=== PATIENT | female | born 1975 | race African-American/Black ===

== ENCOUNTER 2019-08-22 15:30 | Outpatient (AMBR) | payer MEDICAID, SELFPAY ==
--- NOTE | 2019-08-15 16:00 | PT.OIERPT ---
PT OP Initial Eval Patient Information Visit Reasons: neck pain Medical Diagnosis: M48.02 Treatment Dx #1: Neck Pain Treatment Dx #2: BUE Weakness Start of Care: 08/15/19 Initial Assessment Subjective Pt is a 44 y/o female c/o chronic neck pain started 1 year ago. Pt notice numbness and tingling down the arms. 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 Pt currently has limitation with cooking, chores, cleaning, lifting, self care, sleeping, headache, and turning her head. Objective C/S AROM: all motions are WNL with end range pain in all plane Scapula MMTs: grossly 3-/5 BUE AROM: all motions are WNL BUE MMTs: grossly 3+/5 Inspector And Unloader Strength: L- 85 lbs R- 80 lbs Palpation: TTP and hypomobile C3-C6 facets bilaterally; TTP subocciptials R>L Assessment Pt demonstrate neck pain with BUE weakness leading to decline function. Pt will benefit from physical therapy to increase strength, mobility, and work on stability. Short Term and Improvement Auditor Goals 1) Increase c/s AROM WNL with less pain in 6 wks to be able to perform chores 2) Increase BUE MMTs grossly to 4-/5 in 6 wks to be able to perform lifting activities 3) Increase Bilateral scapula MMTs to 3+/5 in 6 wks to be able to perform recreational activities 4) Indep with HEP Treatment Plan 1) Manual Therapy 2) Therapeutic Activities 3) Therapeutic Exercises 4) Modalities (ice, heat, estim) Frequency and Duration 2 x wk for 6 wks Certification Dates: 08/15/19 to 11/15/19 Office Procedures PT Procedures PT Date of Service: 08/15/19 OP PT Eval Mod Complex 30 minutes: Yes
--- NOTE | 2019-08-19 15:49 | PT.ODAYNRPT ---
PT Outpatient Daily Note Date of Service: August 19, 2019 OP Daily Note Visit Reasons: neck pain Outpatient Physical Therapy Treatment Date: 08/19/19 Subjective: pt has neck pain upon visit. pt pleasant and eager for PT. Objective: see flow sheet. Assessment: pt felt a little lightheaded after c/s traction but felt better a few mins in sitting. palpated neck, STM and pt has blanca in her neck. she made sounds indicating discomfort from the STM. good chin tucks performed but she tends to be on her phone which can distract her from the exercise. Plan: continue POC per PT. Length of Time (minutes) of Treatment: 30 Minutes Office Procedures PT Procedures PT Date of Service: 08/15/19 OP PT Eval Mod Complex 30 minutes: Yes PT Procedures PT Date of Service: 08/19/19 Traction Mechanical: Yes Therapeutic Exercise 15 minutes: Yes
--- NOTE | 2019-08-22 16:06 | PT.ODAYNRPT ---
PT Outpatient Daily Note Date of Service: August 22, 2019 OP Daily Note Visit Reasons: neck pain Outpatient Physical Therapy Treatment Date: 08/22/19 Subjective: Pt still has neck pain and UE symptoms. Pt mention that her neck is a little stiff. Objective: Please see flow chart for list of ther ex perfromed Assessment: unable to tolerate much traction force; decrease PSI to 6lbs. Pt had difficulty with y's and t's due to muscle fatigue and pain in the shoulder Plan: Continue with PT Length of Time (minutes) of Treatment: 30 Minutes Office Procedures PT Procedures PT Date of Service: 08/22/19 Traction Mechanical: Yes Therapeutic Exercise 15 minutes: Yes PT Procedures PT Date of Service: 08/15/19 OP PT Eval Mod Complex 30 minutes: Yes PT Procedures PT Date of Service: 08/19/19 Traction Mechanical: Yes Therapeutic Exercise 15 minutes: Yes
== END 2019-08-29 23:59 | disposition home or self-care (01) ==
PROVIDERS: PCP Family Medicine; Referring Provider Family Medicine; Visit Provider Registered Nurse
DX: M48.02 Spinal stenosis, cervical region (principal); M51.26 Other intervertebral disc displacement, lumbar region; M54.2 Cervicalgia; R53.1 Weakness; G89.29 Other chronic pain
CPT/HCPCS: 97012; 97110; 97162

== ENCOUNTER 2025-07-11 21:16 | Emergency (ER) | payer MEDICAID, SELFPAY ==
[2025-07-11 21:17] VITALS: BMI 33.0
[2025-07-11 21:38] VITALS: BP 120/86; PULSE 93; RESP 20; TEMP 37.1; O2SAT 99
--- NOTE | 2025-07-11 22:05 | PD.EDBACK ---
ED Back Injury Pain RME/HPI General Chief Complaint: Back Pain/Injury Stated Complaint: CHRONIC BACK PAIN Time Seen by Provider: 07/11/25 21:54 Arrival date/time: 07/11/25 21:16 RME / HPI RME / HPI Narrative: 50-year-old female patient with history of chronic neck and back pain, came in for evaluation regarding worsening chronic back pain.'s been ongoing for several weeks, was seen by PCP, and was given gabapentin Lyrica, which according to the patient is not really working. Patient pain is described as dull ache, severity moderate. Patient also complained that from time to time she had weakness to bilateral lower extremities. Patient is ambulatory. Patient is denying any saddle anesthesia denies any urinary incontinence denies any bladder incontinence. Patient is asking if we can do MRI of his spine.. Related Data Home Medications ?Medication ?Instructions ?Recorded ?Confirmed fluoxetine 40 mg capsule 40 mg PO QDAY 07/16/18 07/28/22 pregabalin 50 mg capsule (Lyrica) 50 mg PO DAILY 02/10/22 07/28/22 Previous Rx's ?Medication ?Instructions ?Recorded albuterol sulfate 90 mcg/actuation 2 puff inhalation Q6HR PRN 08/28/16 aerosol inhaler (ProAir HFA) SHORTNESS OF BREATH #1 inh cephalexin 500 mg capsule 500 mg PO QID #28 caps 09/03/22 acetaminophen 300 mg-codeine 30 mg 1 tab PO Q8H PRN pain #20 tabs 07/11/25 tablet dexamethasone 6 mg tablet 6 mg PO QDAY #10 tabs 07/11/25 methocarbamol 500 mg tablet 500 mg PO Q8H PRN pain #30 tabs 07/11/25 Allergies Allergy/AdvReac Type Severity Reaction Status Date / Time No Known Allergies Allergy Verified 07/29/22 12:00 Review of Systems Review of Systems Narrative Review of Systems: Review of system reviewed and within normal limits except mentioned in HPI ED Exam Narrative Physical exam: VITAL SIGNS: Reviewed. GENERAL APPEARANCE: Alert and interactive, follows commands, no acute distress, HEAD AND FACE: Non-traumatic. ENT: PERRL, pink conjunctivitis, eyelid no trauma, Mucous membrane moist. NECK: Supple, nontender, no nuchal rigidity. ABDOMEN: Soft, positive bowel sounds, nondistended, no guarding, nontender, no rebound, no masses, RECTAL: Deferred. GENITAL: Deferred. NEUROLOGICAL: Gross motor function intact sensory function intact, Appropriate for age. MUSCULOSKELETAL: low back tenderness, more on the right side. Limited range of motion. EXTREMITIES: Nontender, full range of motion. SKIN: Color pink, dry, no rash, no lacerations, no abrasions, no contusions. LYMPHATICS: Deferred. Course Quality Measures none Orders Category Date Time Status CYCLObenzaPRINE [Flexeril] Med 07/11/25 22:03 Once 10 mg PO X1 ONE Dexamethasone Inj [Decadron Inj] Med 07/11/25 22:03 Once 10 mg PO X1 ONE Ketorolac Inj [Toradol Inj] Med 07/11/25 22:03 Once 30 mg IM X1 ONE Vital Signs Vital signs: Vital Signs Temperature 98.7 F 07/11/25 21:38 Pulse Rate 93 07/11/25 21:38 Respiratory Rate 20 07/11/25 21:38 Blood Pressure 120/86 H 07/11/25 21:38 Pulse Oximetry (%) 99 07/11/25 21:38 Oxygen Delivery Method Room Air 07/11/25 21:38 Back Pain / Injury MDM Narrative MDM Narrative:: 50-year-old female patient with history of chronic neck and back pain, came in for evaluation regarding worsening chronic back pain.'s been ongoing for several weeks, was seen by PCP, and was given gabapentin Lyrica, which according to the patient is not really working. Patient pain is described as dull ache, severity moderate. Patient also complained that from time to time she had weakness to bilateral lower extremities. Patient is ambulatory. Patient is denying any saddle anesthesia denies any urinary incontinence denies any bladder incontinence. Patient is asking if we can do MRI of his spine.. Patient patient will be sent home on medications for pain. Emergency imaging is not needed at this time. Patient is not showing any cauda equina syndrome. I advised the patient to closely follow-up with PCP and asked for outpatient MRI of the spine. Patient data External records reviewed:: None Clinical information provided by:: patient Social determinants that could affect healthcare access:: none Patient has the following chronic illnesses:: Chronic back pain How is presenting disease/condition affected by chronic disease/condition?: exacerbated by Evaluation data The following diagnostics were reviewed and interpreted by me:: other (specify) (None) Lab and/or radiology exams considered but not ordered:: None Interpretation Summary: None Medications / Prescriptions Medications or Prescriptions considered but not ordered:: None Medication administrations:: Toradol, Flexeril, and [place]. Decadron Consultations Consultation(s) initiated? (list below): No Diagnosis Differential diagnosis back pain/injury: lumbar radiculopathy and other (Chronic back pain, acute on chronic back pain) Most likely diagnosis given after review of the tests above:: Acute on chronic back pain Admission Indicated Admission indicated?: not indicated Admission Request Was there a request for admission?: No Disposition Plan Disposition Plan: Discharge Discharge Attestation Discharge Attestation: The patient was given an opportunity to ask questions and understood the discharge instructions. Discharge instructions specifically effects, indications for sooner follow up or return to the emergency department, and the expected course of current diagnosis. Patient condition: Stable Discharge Plan Plan Patient Disposition: HOME (Self Care) Discharge Disposition comment: Stable Prescriptions/Referrals Prescriptions/Med Rec: New methocarbamol 500 mg tablet 500 mg PO Q8H PRN (Reason: pain) Qty: 30 0RF dexamethasone 6 mg tablet 6 mg PO QDAY Qty: 10 0RF acetaminophen-codeine 300-30 mg tablet 1 tab PO Q8H PRN (Reason: pain) Qty: 20 0RF No Action albuterol sulfate [ProAir HFA] 8.5 GM HFA aerosol inhaler 2 puff Inhalation Q6HR PRN (Reason: SHORTNESS OF BREATH) Qty: 1 0RF fluoxetine 40 mg Capsule 40 mg PO QDAY pregabalin [Lyrica] 50 mg Capsule 50 mg PO DAILY cephalexin 500 mg capsule 500 mg PO QID Qty: 28 0RF Problem List Clinical Impression: Acute on chronic low back pain Patient/Caregiver Discharge Instructions Discharge Activity: activity as tolerated Education Materials: Understanding the Pain Response Additional Instructions: Thank you for the opportunity for serving you today. You are stable for discharged . You are advised to: Follow-up with your PCP in 1 to 2 days and ask your PCP to do outpatient MRI of your lumbar spine. You can also ask your PCP to refer you to a spine surgeon Return to ED for worsening of symptoms Increase oral fluids Take medication as prescribed Print Language: German Stand Alone Forms: [place] Award Info., Patient Portal Info Letter PA/LEG ASSEMBLER Supervising Physician PA/LEG ASSEMBLER Supervising Physician: MD Ho
[2025-07-11] MEDS: DEXAMETHASONE SOD PHOS INJ 10 MG/ML VIAL PO (22:58)
[2025-07-11] MEDS: KETOROLAC INJ 30 MG/ML VIAL IM (23:00)
== END 2025-07-11 23:20 | disposition home or self-care (01) ==
LOC: SERX 23:05
PROVIDERS: Emergency Provider Emergency Medicine
DX: M54.50 Low back pain, unspecified (principal); G89.29 Other chronic pain
CPT/HCPCS: 99283; J1100; J1885; A9270

== ENCOUNTER 2025-07-25 11:57 | Emergency (ER) | payer MEDICAID, SELFPAY ==
[2025-07-25 12:09] VITALS: BMI 33.1
[2025-07-25 12:12] VITALS: BP 120/83; PULSE 65; RESP 18; TEMP 36.9; O2SAT 97
--- NOTE | 2025-07-25 12:16 | XR_ITS ---
Examination: Lumbar spine 3 views TECHNIQUE: AP lateral coned lateral lower lumbar spine 3 views Date and time: July 25, 2025, 12:18 PM INDICATIONS: Sudden onset lower back pain today. FINDINGS: Comparison 07/25/2024 Adequate alignment lumbar vertebral bodies on the lateral view Advanced degenerative disc disease of the lower 3 lumbar levels No lumbar fracture Moderate lumbar spondylosis IMPRESSION: Advanced degenerative disc disease lower 3 lumbar levels
[2025-07-25] MEDS: KETOROLAC INJ 60 MG/2 ML VIAL 30 MG IM (13:21)
--- NOTE | 2025-07-25 17:30 | EDNOTE_ITS ---
ED Back Injury Pain RME/HPI General Chief Complaint: Back Pain/Injury Stated Complaint: Lower back pain on right side Time Seen by Provider: 07/25/25 12:11 Source: patient Arrival date/time: 07/25/25 11:57 50-year-old female with a history of asthma presents to the emergency room with a chief complaint of lumbar back pain that radiates down her right leg x 2 days Mode of arrival: ambulatory Limitations: no limitations Related Data Home Medications ?Medication ?Instructions ?Recorded ?Confirmed fluoxetine 40 mg capsule 40 mg PO QDAY 07/16/1807/28 pregabalin 50 mg capsule (Lyrica) 50 mg PO DAILY 02/1007/28/22 Previous Rx's ?Medication ?Instructions ?Recorded albuterol sulfate 90 mcg/actuation 2 puff inhalation Q 6HR PRN 08/28/16 aerosol inhaler (ProAir HFA) SHORTNESS OF BREATH #1 in h cephalexin 500 mg capsule 500 mg PO QID #28 caps 09/03 acetaminophen 300 mg-codeine 30 mg 1 tab PO Q8H PRN pa in #20 tabs 07/11/25 tablet dexamethasone 6 mg tablet 6 mg PO QDAY #10 tabs methocarbamol 500 mg tablet 500 mg PO Q8H PRN pain #30 tabs 07/11/25 Allergies Allergy/AdvReac Type Severity Reaction Status Date / Time No Known Allergies Allergy Verified 07/25/25 12:02 Review of Systems Review of Systems Systems Reviewed: All systems reviewed, normal except as documented Constitutional Constitutional: Reports system reviewed and no additional complaints, except as documented, Denies fatigue, Denies fever(s), Denies headache(s) and Denies weakness Eyes Eyes: Reports system reviewed and no additional complaints, except as documented, Denies blurry vision and Denies change in vision ENT Ears, Nose, Mouth, and Throat: Reports system reviewed and no additional complaints, except as documented, Denies otalgia, Denies headache(s), Denies nasal congestion, Denies throat swelling and Denies vertigo Cardiovascular Cardiovascular: Reports system reviewed and no additional complaints, except as documented, Denies chest pain, Denies dyspnea and Denies dyspnea on exertion Respiratory Respiratory: Reports system reviewed and no additional complaints, except as documented, Denies chest congestion, Denies cough, Denies dyspnea, Denies dyspnea on exertion and Denies wheezing Gastrointestinal Gastrointestinal: Reports system reviewed and no additional complaints, except as documented, Denies abdominal pain, Denies cramping, Denies nausea and Denies vomiting Genitourinary Genitourinary: Reports system reviewed and no additional complaints, except as documented Musculoskeletal Musculoskeletal: Reports system reviewed and no additional complaints, except as documented and Reports back pain Integumentary/Breasts Skin/Breast: Reports system reviewed and no additional complaints, except as documented and Denies wounds Neurologic Neurologic: Reports system reviewed and no additional complaints, except as documented, Denies confusion, Denies headache(s), Denies lack of coordination, Denies vertigo and Denies weakness Psychiatric Psychiatric: Reports system reviewed and no additional complaints, except as documented, Denies anxiety, Denies confusion, Denies depression, Denies paranoia, Denies suicidal ideation and Denies tactile hallucinations Endocrine Endocrine: Reports system reviewed and no additional complaints, except as documented and Denies fatigue Hematologic/Lymphatic Hematologic/Lymphatic: Reports system reviewed and no additional complaints, except as documented and Denies lymphadenopathy Allergic/Immunologic Allergic/Immunologic: Reports system reviewed and no additional complaints, except as documented, Denies throat swelling, Denies urticaria and Denies wheezing Past Medical History Past Medical History NEUROLOGIC: Positive Peripheral Neuropathy; Negative Seizures CARDIAC: Positive Hypercholesterolemia and Hypertension; Negative Cardiac Disorders or Congestive Heart Failure RESPIRATORY: Positive Asthma, Bronchitis, Pneumonia and Sleep Apnea; Negative Chronic Obstructive Pulmonary Disease (COPD) GASTROINTESTINAL: Negative Gastrointestinal Disorders GENITOURINARY: Negative Genitourinary Disorders or Renal Disease REPRODUCTIVE: Positive Previous Pregnancies (x1 csection, x2 ab surgical) MUSCULOSKELETAL: Positive Musculoskeletal Disorders, Degenerative Disk Disease, Carpal Tunnel Syndrome (x2) and Fibromyalgia ENDOCRINE: Negative Endocrine Disorders, Diabetes Mellitus Type 1 or Diabetes Mellitus Type 2 HEMATOLOGIC: Negative Blood Disorders or Sickle Cell Disease PSYCHO/SOCIAL: Positive Recreational Drug Use ([facility]), Depression and Anxiety; Negative Schizophrenia, Bipolar Disorder, Behavior Problems, Self-Mutilation, Attention Deficit Disorder, Depression, Post Traumatic Stress Disorder or Eating Disorder OTHER HISTORY: Negative Blood Transfusions, Blood Transfusion Reaction, Anesthesia Reactions, Chemotherapy or Cancer Family History FAMILY HISTORY: Positive Family Respiratory Disorders (dad asthma); Negative Family Cancer Surgical History SURGICAL: Positive Joint Replacement and Section; Negative Ear Surgery, Abdominal Surgery or Nephrectomy Social History SMOKING STATUS: Current every day smoker SUBSTANCE USE: marijuana ED Exam General Limitations: Present no limitations General appearance: Present alert and in no apparent distress Head Head exam: Present atraumatic Eye Eye exam: Present normal appearance, PERRL and EOMI ENT ENT exam: Present normal exam, normal oropharynx and mucous membranes moist Neck Neck exam: Present normal inspection, full ROM and trachea midline Chest Chest inspection: Present normal inspection and symmetric chest wall rise Respiratory Respiratory exam: Present normal lung sounds bilaterally Cardiovascular Cardiovascular exam: Present regular rate, normal rhythm and normal heart sounds Abdominal Exam Abdominal exam: Present soft and normal bowel sounds Extremities Exam Extremities exam: Present normal inspection and full ROM Back Exam Back exam: Present normal inspection, full ROM, tenderness, vertebral tenderness and sciatic notch tenderness (R) Back 1 view image: 2 1. Tenderness and pain with palpation Neurological Exam Neurological exam: Present alert, oriented X3 and CN II-XII intact Psychiatric Psychiatric exam: Present normal affect and normal mood Skin Skin exam: Present warm, dry, intact and normal color Course Quality Measures none Orders Category Date Time Status XR lumbar spine 2-3V Stat Exams 07/25/25 12:16 Completed Ketorolac Inj [Toradol Inj] Med 07/25/25 12:16 Discontinued 30 mg IM X1 ONE Vital Signs Vital signs: Vital Signs Temperature 98.4 F 07/25/25 12:12 Pulse Rate 65 07/25/25 12:12 Respiratory Rate 18 07/25/25 12:12 Blood Pressure 120/83 07/25/25 12:12 Pulse Oximetry (%) 97 07/25/25 12:12 Oxygen Delivery Method Room Air 07/25/25 12:12 Back Pain / Injury MDM Narrative MDM Narrative:: 50-year-old female with a history of asthma presents to the emergency room with a chief complaint of lumbar back pain that radiates down her right leg x 2 days Patient is hemodynamically stable and in no apparent distress. Physical examination shows lower lumbar back pain with palpation. The patient also has some right sciatic notch tenderness and states that the pain will be shooting down her right leg intermittently with certain movements. X-ray of the lumbar spine was negative for any acute findings. Findings are consistent with sciatica Patient was discharged and educated to follow-up with primary care provider in the next 24 to 48 hours and return to the emergency room for any evidence of worsening signs or symptoms Patient data External records reviewed:: [facility] previous records Clinical information provided by:: patient Social determinants that could affect healthcare access:: none Patient has the following chronic illnesses:: No chronic illness How is presenting disease/condition affected by chronic disease/condition?: no chronic disease Evaluation data The following diagnostics were reviewed and interpreted by me:: lab results and radiology exam(s) Lab and/or radiology exams considered but not ordered:: Labs and radiology exams considered and ordered Interpretation Summary: Lumbar [id number]: Comparison 07/25/2024 Adequate alignment lumbar vertebral bodies on the lateral view Advanced degenerative disc disease of the lower 3 lumbar levels No lumbar fracture Moderate lumbar spondylosis IMPRESSION: Advanced degenerative disc disease lower 3 lumbar levels Medications / Prescriptions Medications or Prescriptions considered but not ordered:: Medication given Medication administrations:: Medication Administration History Discontinued Medications Ketorolac Tromethamine (Ketorolac Inj 60 Mg/2 Ml Vial) 30 mg IM X1 ONE Stop: 07/25/25 12:17 Last Admin: 07/25/25 13:21 Dose: 30 mg Documented By: Medication given Consultations Consultation(s) initiated? (list below): No Diagnosis Differential diagnosis back pain/injury: lumbar radiculopathy, sciatica, strain of lumbar region and thoracic back pain Most likely diagnosis given after review of the tests above:: Sciatica Admission Indicated Admission indicated?: not indicated Admission Request Was there a request for admission?: No Disposition Plan Disposition Plan: Discharge Discharge Attestation Discharge Attestation: The patient and all family members were given an opportunity to ask questions and understood the discharge instructions. Discharge instructions specifically effects, indications for sooner follow up or return to the emergency department, and the expected course of current diagnosis. Patient condition: Stable Discharge Plan Plan Patient Disposition: HOME (Self Care) Discharge Disposition comment: Stable Prescriptions/Referrals Prescriptions/Med Rec: No Action albuterol sulfate [ProAir HFA] 8.5 GM HFA aerosol inhaler 2 puff Inhalation Q6HR PRN (Reason: SHORTNESS OF BREATH) Qty: 1 0RF fluoxetine 40 mg Capsule 40 mg PO QDAY pregabalin [Lyrica] 50 mg Capsule 50 mg PO DAILY cephalexin 500 mg capsule 500 mg PO QID Qty: 28 0RF methocarbamol 500 mg tablet 500 mg PO Q8H PRN (Reason: pain) Qty: 30 0RF dexamethasone 6 mg tablet 6 mg PO QDAY Qty: 10 0RF acetaminophen-codeine 300-30 mg tablet 1 tab PO Q8H PRN (Reason: pain) Qty: 20 0RF Problem List Clinical Impression: Sciatica Patient/Caregiver Discharge Instructions Education Materials: ED Sciatica Additional Instructions: Please follow-up with your primary care provider in the next 24 to 48 hours X-ray of your lumbar spine was negative for any acute findings For any evidence of worsening signs or symptoms return to emergency room immediately Print Language: Citizen Of [place] Stand Alone Forms: [place] Award Info., Patient Portal Info Letter PA/FOREST LANDSCAPE ECOLOGY PROFESSOR Supervising Physician PA/FOREST LANDSCAPE ECOLOGY PROFESSOR Supervising Physician: Dr. Jamison
== END 2025-07-25 13:15 | disposition home or self-care (01) ==
LOC: SERX 13:10
PROVIDERS: Emergency Provider Nurse Practitioner Family; PCP Nurse Practitioner Family
DX: M51.16 Intervertebral disc disorders with radiculopathy, lumbar region (principal)
CPT/HCPCS: 72100; 99283; J1885

== ENCOUNTER 2025-10-06 12:22 | Inpatient (IN) | payer MEDICAID, SELFPAY ==
--- NOTE | 2025-10-06 | XR_ITS ---
Examinations: MRI Brain without intravenous contrast. MRI brain with intravenous contrast MRA brain with intravenous contrast. MRA brain without intravenous contrast MRA neck with intravenous contrast Date and time of exam: Decerebrate, 2024, 1623 hours INDICATIONS: Left-sided headaches and body numbness beginning 2 days ago Technique: Multiple axial and sagittal images of the brain have been obtained Siemens high-resolution 1.5 Lyn short bore scanner is utilized. Sagittal sections, T1-weighted, TR 500, TE 14 Axial sections proton density and T2-weighted, TR 3,000, TE 34, TR 3,000, TE 91 Inversion recovery axial images, TR 9,260, TE 111, TI 2,500 Diffusion weighted images, axial sections, TR 4,800, TE 128, B value 1,000 Axial sections, ADC map, TR 4,800, TE 128. Contrast images have been obtained post intravenous 20 cc Gadolinium. T1-weighted axial and coronal images post contrast have been obtained. Angiographic images of neck and brain are obtained pre and post contrast. 3-D post processing performed, including brain, extracranial neck arterial maximum intensity projections Findings: Sellaturcica is not enlarged. The optic chiasm and infundibular stalk are not remarkable. Prepontine and interpeduncular cisterns are not enlarged. No localized enlargement of the medulla or bayron. Fourth ventricle and cerebellar tonsils normal in position. Subacute hemorrhage is not seen. Fourth ventricle is midline. Mass in the cerebellopontine angle region is not evident. 7th and 8th nerve complexes exhibits symmetry. Globes are symmetrical with no retro-orbital mass. Increased white matter signal evident, punctate focus increased signal left frontal white matter FLAIR image 13 and increased signal right brainstem pontine level Diffusion-weighted images demonstrate large focus, 15 mm restricted diffusion right brainstem pontine level. Mass-effect upon the ventricular system is not identified. Abnormal contrast enhancement is not seen. 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
[2025-10-06 12:35] VITALS: BP 144/98; PULSE 56; RESP 18; TEMP 36.9; O2SAT 100; BMI 32.3
--- NOTE | 2025-10-06 12:59 | EDNOTE_ITS ---
Neuro Symptoms Deficit-RME/HPI General Chief Complaint: General Adult/Misc Complain Stated Complaint: HEADACHE, NUMBNESS L) SIDE X 2 DAYS; ANKLE PAIN Time Seen by Provider: 10/06/25 13:05 Arrival date/time: 10/06/25 12:22 RME / HPI RME / HPI Narrative: See [facility] for Dr. Parkinson's HPI Documentation. Related Data Home Medications ?Medication ?Instructions ?Recorded ?Confirmed fluoxetine 40 mg capsule 40 mg PO QDAY 07/16/1807/28 pregabalin 50 mg capsule (Lyrica) 50 mg PO DAILY 02/1007/28/22 Previous Rx's ?Medication ?Instructions ?Recorded albuterol sulfate 90 mcg/actuation 2 puff inhalation Q 6HR PRN 08/28/16 aerosol inhaler (ProAir HFA) SHORTNESS OF BREATH #1 in h cephalexin 500 mg capsule 500 mg PO QID #28 caps 09/03 acetaminophen 300 mg-codeine 30 mg 1 tab PO Q8H PRN pa in #20 tabs 07/11/25 tablet dexamethasone 6 mg tablet 6 mg PO QDAY #10 tabs methocarbamol 500 mg tablet 500 mg PO Q8H PRN pain #30 tabs 07/11/25 Allergies Allergy/AdvReac Type Severity Reaction Status Date / Time No Known Allergies Allergy Verified 10/06/25 12:26 Review of Systems Review of Systems Systems Reviewed: All systems reviewed, normal except as documented Past Medical History Past Medical History NEUROLOGIC: Positive Peripheral Neuropathy CARDIAC: Positive Hypercholesterolemia and Hypertension RESPIRATORY: Positive Asthma, Bronchitis, Pneumonia and Sleep Apnea REPRODUCTIVE: Positive Previous Pregnancies (x1 csection, x2 ab surgical) MUSCULOSKELETAL: Positive Musculoskeletal Disorders, Degenerative Disk Disease, Carpal Tunnel Syndrome (x2) and Fibromyalgia PSYCHO/SOCIAL: Positive Recreational Drug Use (medical marajuana), Depression and Anxiety Family History FAMILY HISTORY: Positive Family Respiratory Disorders (dad asthma) Surgical History SURGICAL: Positive Joint Replacement and Section Social History SMOKING STATUS: Current every day smoker SUBSTANCE USE: marijuana ED Exam Narrative Physical exam: See [facility] for Dr. Parkinson's Physical Exam Documentation. Course Quality Measures none Orders Category Date Time Status Admit to Inpatient Status Routine Admission 10/06/25 20:13 Active Patient Condition Routine Admission 10/06/25 20:13 Ordered Aspiration precautions ONCE Care 10/06/25 20:18 Active COVID-19 Screening Questionnaire NOW Care 10/06/25 20:05 Active Decision to Admit X1 Care 10/06/25 20:05 Completed EKG (ED ONLY) *Do not use* NOW Care 10/06/25 13:04 Completed Neuro Check Q4H Care 10/06/25 20:12 Active Notify provider NEEDED Care 10/06/25 20:13 Active Saline [Insert IV] NOW Care 10/06/25 13:03 Active Consult to Neurology / Tele-Neurology Stat Cons 10/06/25 19:19 Active CA echo doppler complete Routine Exams 10/06/25 20:16 Ordered EKG (ED Only) Stat Exams 10/06/25 13:04 Draft MR stroke protocol brain wwo with MRA head and neck Exams 10/06/25 Completed Stat XR chest 1V portable Stat Exams 10/06/25 13:04 Completed Alcohol, Blood Medical Stat Lab 10/06/25 13:18 Completed BNP [B-Type Natriuretic Peptide] Stat Lab 10/06/25 13:18 Completed Beta Hydroxybutyrate Stat Lab 10/06/25 13:18 Completed CBC AM DRAW Lab 10/07/25 05:00 Ordered CBC AM DRAW Lab 10/08/25 05:00 Ordered CBC AM DRAW Lab 10/09/25 05:00 Ordered CBC AM DRAW Lab 10/10/25 05:00 Ordered CBC AM DRAW Lab 10/11/25 05:00 Ordered CBC Stat Lab 10/06/25 13:18 Completed CMP [Comprehensive Metabolic Panel] Stat Lab 10/06/25 13:18 Completed CRP [C-Reactive Protein] Stat Lab 10/06/25 13:18 Completed Comprehensive Metabolic Panel AM DRAW Lab 10/07/25 05:00 Ordered Comprehensive Metabolic Panel AM DRAW Lab 10/08/25 05:00 Ordered Comprehensive Metabolic Panel AM DRAW Lab 10/09/25 05:00 Ordered Comprehensive Metabolic Panel AM DRAW Lab 10/10/25 05:00 Ordered Comprehensive Metabolic Panel AM DRAW Lab 10/11/25 05:00 Ordered Drug Screen,Urine Stat Lab 10/06/25 20:37 Completed ESR [Sed Rate (ESR)] Stat Lab 10/06/25 13:18 Completed HCG,Qualitative Serum Stat Lab 10/06/25 13:18 Completed Hemoglobin A1C [Glycohemoglobin w (eAG)] Stat Lab 10/06/25 13:18 Completed Lipid Panel AM DRAW Lab 10/07/25 05:00 Ordered Magnesium AM DRAW Lab 10/07/25 05:00 Ordered Magnesium Stat Lab 10/06/25 13:18 Completed Procalcitonin Stat Lab 10/06/25 13:18 Completed TSH [Thyroid Stimulating Hormone] Stat Lab 10/06/25 13:18 Completed Troponin I Stat Lab 10/06/25 13:18 Completed UA, C/S IF [Urinalysis, C/S if Indicated] Stat Lab 10/06/25 20:37 Completed Urine Culture Stat Lab 10/06/25 20:37 Received VBG [Venous Blood Gas] Stat Lab 10/06/25 13:18 Completed Acetaminophen Tab [Tylenol Tab] Med 10/06/25 20:12 Active 650 mg PO Q6H PRN Enoxaparin [Lovenox] Med 10/07/25 09:00 Active 40 mg SC QDAY Ondansetron Inj [Zofran Inj] Med 10/06/25 13:03 Discontinued 4 mg IVP X1 ONE Scopolamine [Transderm-Scop Patch] Med 10/06/25 13:03 Discontinued 1 mg TOP X1 ONE Sodium Chloride 0.9% 1000 ml [Ns] 1,000 ml Med 10/06/25 13:03 Discontinued IV 999 mls/hr Code Status Routine Oth 10/06/25 20:12 Ordered Oxygen Delivery PRN RT 10/06/25 20:12 Active Vital Signs Vital signs: Vital Signs Temperature 98.5 F 10/06/25 12:35 Pulse Rate 56 L 10/06/25 12:35 Respiratory Rate 18 10/06/25 12:35 Blood Pressure 144/98 H 10/06/25 12:35 Pulse Oximetry (%) 100 10/06/25 12:35 Oxygen Delivery Method Room Air 10/06/25 12:35 Neuro Symptoms / Deficit MDM Narrative MDM Narrative:: This section includes all my notes and documentations, including HPI, PE, and ED course. Joshua Parkinson MD HPI: 50 y/o female with Hx Peripheral Neuropathy, Hypercholesterolemia, Chronic Pain, and Hypertension presents with left-sided weakness/numbness and vertigo dizziness and not being able to balance herself when standing/walking. Started the day before yesterday, over 48 hours ago. No speech or visual impairment. No chest pain. No other complaints. ROS: All negative except as documented in HPI. Physical Exam: General: Alert and oriented. Eyes: Conjunctivae and lids clear. EOMI. PERRL. ENT: No nasal congestion. Pharynx normal. Tympanic membrane normal bilaterally. Neck: Supple. No carotid bruit. No JVD. Heart: RRR. Lungs: No respiratory distress. Good air movement. No rhonchi, wheezing, rales. Abdomen: Soft and nontender. Legs: No clubbing, cyanosis, edema. Skin: Warm and dry. Neuro: Alert and oriented X 3. Cranial Nerves II-XII grossly intact. Equivocal left-sided weakness. I reviewed all diagnostic test results: My interpretation of the EKG: Sinus bradycardia (50 bpm) with no ST-T changes. My interpretation of the chest x-ray is: NAD. My review of the Brain MRI report is: Large acute infarct right brainstem. Blood tests unremarkable. UA showed leukocyte esterase, 15 RBC, 78 WBC. UDS positive for methamphetamine and marijuana. At this point, diagnoses include: Acute CVA UTI Methamphetamine intoxication Treatment here from me included: IVF Zofran 4 mg IV Scopolamine patch Rocephin 1 g IV I discussed the case with Dr. More. About the presentation and exam and diagnostics and treatments here. And need of further care in the hospital. Recommended admission to hospitalist for further care. I discussed the case with our hospitalist. About the presentation and exam and diagnostics and treatments here. And need of further care in the hospital. Decided to accept the patient. Joshua Parkinson MD Patient data External records reviewed:: [facility] previous records (Reviewed prior ED records from 07/25/25. Patient was seen for Sciatica.) Clinical information provided by:: patient Social determinants that could affect healthcare access:: substance use (Medical Marijuana) Patient has the following chronic illnesses:: Peripheral Neuropathy, Hypercholesterolemia, Hypertension, Sleep Apnea, Degenerative Disk Disease, Carpal Tunnel Syndrome, Fibromyalgia, Recreational Drug Use, Depression and Anxiety How is presenting disease/condition affected by chronic disease/condition?: exacerbated by Evaluation data The following diagnostics were reviewed and interpreted by me:: lab results, radiology exam(s) and EKG tracing(s) (My interpretation of the EKG: Sinus bradycardia (50 bpm) with no ST-T changes. Joshua Parkinson MD) Lab and/or radiology exams considered but not ordered:: None Interpretation Summary: I reviewed all diagnostic test results: My interpretation of the EKG: Sinus bradycardia (50 bpm) with no ST-T changes. My interpretation of the chest x-ray is: NAD. My review of the Brain MRI report is: Large acute infarct right brainstem. Blood tests unremarkable. UA showed leukocyte esterase, 15 RBC, 78 WBC. UDS positive for methamphetamine and marijuana. Medications / Prescriptions Medications or Prescriptions considered but not ordered:: None Medication administrations:: Medication Administration History Acetaminophen (Acetaminophen 325 Mg Tablet) 650 mg PO Q6H PRN PRN Reason: Fever >100.4 Stop: 11/05/25 20:11 Amoxicillin (Amoxicillin 250 Mg Capsule) 500 mg PO TID [facility] Stop: 10/13/25 21:59 Aspirin (Aspirin Ec 81 Mg Tabec) 81 mg PO DAILY DC Stop: 11/06/25 08:59 Clopidogrel Bisulfate (Clopidogrel Bisulfate 75 Mg Tablet) 75 mg PO DAILY DC Stop: 11/06/25 08:59 Enoxaparin Sodium (Enoxaparin Sod Inj 40 Mg/0.4 Ml Syringe) 40 mg SC QDAY DC Stop: 10/21/25 08:59 Ceftriaxone Sodium/Dextrose (Rocephin/D5w 1gm Iv Premix) 1 gm in 50 mls @ 100 mls/hr IV X1 ONE Stop: 10/06/25 21:40 Discontinued Medications Aspirin (Aspirin Ec 81 Mg Tabec) 81 mg PO X1 ONE Stop: 10/06/25 20:32 Last Admin: 10/06/25 20:49 Dose: 81 mg Documented By: SLAVA Clopidogrel Bisulfate (Clopidogrel Bisulfate 75 Mg Tablet) 75 mg PO X1 ONE Stop: 10/06/25 20:32 Last Admin: 10/06/25 20:49 Dose: 75 mg Documented By: SLAVA Sodium Chloride (Ns) 1,000 mls @ 999 mls/hr IV .Q1H1M ONE Stop: 10/06/25 14:03 Last Infusion: 10/06/25 19:40 Dose: Infused Documented By: Admin: 10/06/25 13:33 Dose: 999 mls/hr Documented By: DEBRA Ondansetron HCl (Ondansetron Inj 2 Mg/Ml Inj 2 Ml) 4 mg IVP X1 ONE; Protocol Stop: 10/06/25 13:04 Last Admin: 10/06/25 13:33 Dose: 4 mg Documented By: DEBRA Scopolamine (Scopolamine 1 Mg Tdsy) 1 mg TOP X1 ONE Stop: 10/06/25 13:04 Last Admin: 10/06/25 13:32 Dose: 1 mg Documented By: DEBRA Treatment here from me included: IVF Zofran 4 mg IV Scopolamine patch Rocephin 1 g IV Consultations Consultation(s) initiated? (list below): Yes Consultation #1 (Physician, Specialty, Details): I discussed the case with Dr. More. About the presentation and exam and diagnostics and treatments here. And need of further care in the hospital. Recommended admission to hospitalist for further care. Time: 18:54 Consultation #2 (Physician, Specialty, Details): I discussed the case with our hospitalist. About the presentation and exam and diagnostics and treatments here. And need of further care in the hospital. Agreed to accept the patient. Time: 20:00 Diagnosis Neuro Differential Diagnosis: convulsions, delirium, subarachnoid hemorrhage, peripheral neuropathy, cerebrovascular accident, multiple sclerosis and transient cerebral ischemia Most likely diagnosis given after review of the tests above:: Acute CVA UTI Methamphetamine intoxication Admission Indicated Admission indicated?: indicated Explain why admission is indicated or not indicated:: Acute CVA Admission Request Was there a request for admission?: Yes Admission Attestation Admission request attestation: I discussed the case with our hospitalist. About the presentation and exam and diagnostics and treatments here. And need of further care in the hospital. Agreed to accept the patient. Disposition Plan Disposition Plan: Admit Critical Care Time Critical Care Time Critical Care Time: Yes Total Critical Care Time (min.): 36 Attestation: Due to a high probability of clinically significant, life threatening deterioration, the patient required my highest level of preparedness to intervene emergently and I personally spent this critical care time directly and personally managing the patient. This critical care time included obtaining a history; examining the patient; ordering and review of studies; arranging urgent treatment with development of a management plan; evaluation of patient's response to treatment; frequent reassessment; and discussions with family and ot her providers. It was exclusive of separately billable procedures and treating other patients and teaching time. Joshua Parkinson MD Discharge Plan Plan Patient Disposition: Admit Acute Care w/in Hospital Problem List Clinical Impression: Acute CVA (cerebrovascular accident), UTI (urinary tract infection), Methamphetamine intoxication
--- NOTE | 2025-10-06 13:04 | XR_ITS ---
EXAMINATION: PA chest single view TECHNIQUE: Upright PA chest single view Date and time: September,, 1319 hours INDICATIONS: Dizziness shortness of breath today FINDINGS: Normal heart size Lungs are clear. Osseous structures are intact IMPRESSION: No active disease
--- NOTE | 2025-10-06 13:04 | EKG_ITS ---
[facility] Test Date: 2025-10-06 Pat Name: NANNETTE RAMSAY Department: Room: - Gender: Female [employer] Super[employer]: : 1975 Requested By: Joshua Solis Order Number: [id number] Reading MD: Joshua Solis Measurements Intervals [place] Rate: 50 P: 58 SD: 122 QRS: 84 QRSD: 82 T: 70 QT: 477 QTc: 435 Interpretive Statements SINUS BRADYCARDIA Compared to ECG 09/03/2022 15:07:07 Sinus rhythm no longer present Short SD interval no longer present T-wave abnormality no longer present /store/S0/[id number].pdf
[2025-10-06 13:24] LABS: Base Excess, Venous 4 (-3-3); O2 Saturation, Venous 49 % (96-97); PCO2, Venous 47 mmHg (36-56); PO2, Venous 26 mmHg (15-58); pH, Venous 7.41 (7.33-7.66)
[2025-10-06 13:29] LABS: Basophils # (Auto) 0.1 Thou/mm3 (0.0-0.2); Basophils % (Auto) 1 % (0-2.5); Eosinophils # (Auto) 0.2 Thou/mm3 (0.0-0.5); Eosinophils % (Auto) 2 % (0-10); Hematocrit 42.7 % (36.0-46.0); Hemoglobin 13.9 g/dL (12.0-16.0); Immature Granulocytes Auto 0.02 Thou/mm3 (0.00-0.00); Lymphocytes # (Auto) 2.9 Thou/mm3 (1.0-4.8); Lymphocytes % (Auto) 33 % (10-50); Mean Corpuscular HGB Conc 32.6 g/dl (31.0-37.0); Mean Corpuscular Hemoglobin 30.5 pg (25.0-35.0); Mean Corpuscular Volume 94 fL (80-100); Monocytes # (Auto) 0.7 Thou/mm3 (0.0-0.8); Monocytes % (Auto) 8 % (0-12); Neutrophils # (Auto) 4.8 Thou/mm3 (1.8-7.7); Neutrophils % (Auto) 56 % (37-80); Nucleated Red Blood Cell # 0.00 Thou/mm3 (0.00-0.00); Nucleated Red Blood Cell % 0 /100 WBC (0); Platelet Count 348 Thou/mm3 (140-440); RDW Standard Deviation 44.8 fL (36.4-46.3); Red Blood Count 4.56 Miln/mm3 (4.00-5.20); White Blood Count 8.7 Thou/mm3 (3.6-11.0)
[2025-10-06] MEDS: SCOPOLAMINE 1 MG TDSY TOP (13:32)
[2025-10-06] MEDS: SODIUM CHLORIDE 0.9% 1000 ML 1,000 ML 999 ML IV (13:33)
[2025-10-06] MEDS: ONDANSETRON INJ 2 MG/ML INJ 2 ML 4 MG IVP (13:33)
[2025-10-06 13:34] LABS: Beta Hydroxybutyrate 0.2 mmol/L (<0.6)
[2025-10-06 13:48] LABS: B-Type Natriuretic Peptide 20 pg/mL (0-100)
[2025-10-06 14:02] LABS: Alanine Aminotransferase 26 U/L (10-49); Albumin, Serum 4.5 gm/dL (3.5-5.0); Albumin/Globulin Ratio 1.4 (1.2-2.2); Alcohol, Blood Medical < 3.0 mg/dL (0-10.0); Alkaline Phosphatase 79 U/L (46-116); Anion Gap 9 (7-16); Aspartate Amino Transferase 25 U/L (0-34); BUN/Creatinine Ratio 13 Ratio (12-20); Bilirubin,Total 0.5 mg/dL (0.3-1.2); Blood Urea Nitrogen 10 mg/dL (9-23); C-Reactive Protein < 0.5 mg/dL (0.0-0.9); Calcium 9.4 mg/dL (8.3-10.6); Calcium (Corrected) 9.4 mg/dL (8.5-10.1); Carbon Dioxide 28.0 mMol/L (20.0-31.0); Chloride 106 mMol/L (98-107); Creatinine (Component) 0.8 mg/dL (0.6-1.3); Estimated Creatinine Clearance 96.5 mL/min (>60); Globulin 3.3 gm/dL (2.3-3.5); Glucose 94 mg/dL (74-106); Magnesium 1.7 mg/dL (1.6-2.6); Osmolality,Calculated 283 (275-295); Potassium 4.0 mMol/L (3.4-5.1); Procalcitonin < 0.04 ng/ml (0.0-0.49); Sodium 143 mMol/L (136-145); Thyroid Stimulating Hormone 0.77 uIU/mL (0.55-4.78); Total Protein 7.8 gm/dL (5.7-8.2); Troponin I < 0.002 ng/mL (0.0-0.045); eGFR > 60 See Note
[2025-10-06 14:05] LABS: HCG,Qualitative Serum Negative
[2025-10-06 14:23] LABS: Sed Rate (ESR) 49 mm/hr (0-20)
[2025-10-06 14:39] LABS: Glucose Estimated Average 128 mg/dL (80-131); Hemoglobin A1C 6.1 % Hgb (4.8-6.0)
[2025-10-06 18:21] VITALS: BP 137/88; PULSE 70; RESP 19; TEMP 37.1; O2SAT 99
[2025-10-06 19:22] VITALS: BP 144/96; PULSE 60; RESP 13; TEMP 36.7; O2SAT 97
[2025-10-06 20:09] VITALS: BP 135/86; PULSE 60; RESP 18; TEMP 36.9; O2SAT 99
--- NOTE | 2025-10-06 20:16 | ECHO_ITS ---
Patient Info Name: Patrica Elizalde Age: 50 years : 1975 Gender: Female Ht: 168 cm Wt: 95 kg BSA: 2.14 m2 BP: 131 / 82 mmHg HR: 75 bpm Exam Date: 10/08/2025 6:51 AM Admit Date: 10/06/2025 Site: [facility] Room Number: [id number] Patient Status: I Exam Type: CA echo doppler complete Commercial Insurance Underwriter: Anat Stokes Ordering Physician: Johny Malik Study Info Indications Stroke - Contrast/Agitated Saline Contrast/Ag. Saline: Agitated Saline Amount: --- ml Primary Location: S2NX Left Ventricular Outflow Tract Name Value Normal LVOT 2D LVOT Diameter 1.9 cm LVOT Doppler LVOT Peak Velocity 129 cm/s LVOT Mean Gradient 3 mmHg LVOT VTI 29 cm LVOT VTI/AV VTI Ratio 0.8 LVOT Stroke Volume 81 ml Pulmonic Valve Name Value Normal PV Doppler PV Peak Velocity 71 cm/s Mitral Valve Name Value Normal MV Doppler MV Decel Amite 538 cm/s2 MV PHT 47 ms MV Area (PHT) 4.7 cm2 4.0-5.0 MV Diastolic Function MV E Peak Velocity 87 cm/s MV A Peak Velocity 80 cm/s MV E/A 1.1 MV Annular TDI MV Septal e' Velocity 6.4 cm/s MV E/e' (Septal) 13.6 MV Lateral e' Velocity 14.4 cm/s MV E/e' (Lateral) 6.0 MV e' Average 10.41 cm/s MV E/e' (Average) 9.8 Tricuspid Valve Name Value Normal TV Regurgitation Doppler TR Peak Velocity 271 cm/s Estimated PAP/RSVP RA Pressure 3 mmHg <=5 PA Systolic Pressure 32 mmHg <36 RV Systolic Pressure 32 mmHg <36 Aortic Valve Name Value Normal AV 2D/MM AV Cusp Sep (MM) 1.5 cm AV Doppler AV Peak Velocity 153 cm/s AV Mean Gradient 5 mmHg AV VTI 37 cm AV Area (Cont Eq VTI) 2.2 cm2 >=3.0 AV Area (Cont Eq Raymond) 2.4 cm2 AV DI (Raymond) 0.84 AV Regurgitation 2D LVOT Area 2.8 cm2 Ventricles Name Value Normal LV Dimensions 2D/MM IVS Diastolic Thickness (2D) 0.9 cm 0.6-0.9 LVID Diastole (2D) 4.8 cm 3.8-5.2 LVIW Diastolic Thickness (2D) 1.0 cm 0.6-0.9 LVID Systole (2D) 3.0 cm 2.2-3.5 LVOT Diameter 1.9 cm LV Mass (2D Cubed) 158.82 g 67.00-162.00 LV Mass Index (2D Cubed) 74 g/m2 43-95 Relative Wall Thickness (2D) 0.42 <=0.42 IVS/LVIW Diastolic Thickness (2D) 0.90 0.00-1.50 LV Fractional Shortening/Ejection Fraction 2D/MM LV Fractional Shortening (2D) 38 % 27-45 LV EF (2D Teichholz) 67 % Atria Name Value Normal LA Dimensions LA Volume (4C A-L) 50 ml Left Ventricle Left ventricular chamber dimension is normal. Left ventricular systolic function is normal with visually estimated ejection fraction of 60-65%. There is mild concentric hypertrophy noted in the left ventricle. Left ventricular segmental wall motion is normal. There is grade I diastolic dysfunction in the left ventricle. Right Ventricle Right ventricular chamber dimension is normal. Right ventricular systolic function is normal. Left Atrium Left atrial chamber dimension is normal. Right Atrium Right atrial chamber dimension is normal. Aortic Valve The aortic valve is trileaflet. There is no aortic valve sclerosis. There is no aortic valve stenosis with a peak velocity of 153 cm/s, mean gradient of 5 mmHg, and aortic valve area of 2.2 cm2. There is trace aortic valve regurgitation. Pulmonic Valve The pulmonic valve is normal. There is no pulmonic valve stenosis. There is no pulmonic regurgitation. Mitral Valve The mitral valve has normal leaflets. There is no mitral valve stenosis. There is trace mitral valve regurgitation. Tricuspid Valve The tricuspid valve leaflets are normal. There is no tricuspid valve stenosis. There is trace tricuspid valve regurgitation. No pulmonary hypertension, estimated pulmonary arterial systolic pressure is 32 mmHg and systemic blood pressure of 131 mmHg in systole. Pericardium/Pleural There is no pericardial effusion with no tamponade. No pleural effusion visualized. Inferior Vena Cava Normal inferior vena cava with >50% collapse upon inspiration consistent with normal right atrial pressure, 3 mmHg. Aorta The aortic measurements are indexed to age and body surface area. The aortic root at the sinus of Valsalva is not well visualized. The prox ascending aorta is not well visualized. Summary 1. Left ventricle size is normal and systolic function is normal. Estimated ejection fraction is 60-65%. There is grade I diastolic dysfunction. There is mild concentric hypertrophy noted. 2. Right ventricle chamber size is normal and systolic function is normal. Estimated RVSP is 32 mmHg. Mild pulmonary HTN. 3. There is trace aortic and mitral valve regurgitation. mild TR. 4. Bubble study not performed. Consider ISATU if high index of clinical suspicion. Report Signatures Finalized by Lee Durbin on 10/08/2025 04:36 PM
--- NOTE | 2025-10-06 20:33 | ESHP_ITS ---
<Statement entered by Aravind Murcia MD - 10/07/25 03:40> A 50-year-old female with significant past medical history of depression, asthma presented to the hospital with chief complaints of weakness of left half of the body since 2 days. Reported that she noted to have weakness at the time she is working in the garden. On the day of admission, as the weakness is bothering her, her mother helped her to come to the hospital. Reported that she is still able to walk. Reported that one of her friends is spiking her food and drinks.Vitals are stable. On physical examination, noted to have weakness of left half of the body, power is -4/5 on the lower extremity, -4.5 on the upper extremity. Sensory system and cranial nerves are intact.Labs at the time of admission are within normal limits except for ESR 49, A1c 6.1, urinalysis showed 78 WBC, 15 RBC.Urine toxicology tested positive for methamphetamine. Brain MRI with MR angiogram was done that showed large acute infarct in the right brainstem, 1.3 cm at pontine level. Started on aspirin, clopidogrel, atorvastatin. Will continue DVT prophylaxis. Consulted neurologist, Dr More. Ordered echocardiogram, physical therapy, speech therapy. I have personally seen and examined the patient, agree with residents assessment and plan Patient plan of care was discussed with the attending physician, Dr. Humera Murcia, PGY2 Documentation for date of: 10/06/25 HPI History of Present Illness History of present illness: HPI: 50-year-old female with a past medical history of depression and asthma presented to the ED in the evening of 10/06/2025 with chief complaint of left- sided weakness and dizziness. Patient mentioned that she woke up on the morning of 10/04/2025 and had trouble gripping with her left hand. This was followed by several episodes of dizziness over the past 2 days with development of weakness in her left leg that prompted her to visit the ED. She also endorsed recent onset urinary incontinence over the past 2 days. She denied loss of control of her bowel. She also denied vision changes, dysarthria, anesthesia, paresthesia or dysesthesia. She was found to have a large acute infarction in the right brainstem at the pontine level on brain MRI. Patient was admitted for acute ischemic stroke of the right brainstem at the pontine level. ED Course: * Significant vitals on arrival: BP 144/98, pulse 56. * Significant labs: ESR 49, VBG O2 sat 49% likely an error, A1c 6.1. * Imaging: Brain MRI showed : Large acute infarct right brainstem, 13 mm, pontine level. Punctate focus increased signal left frontal white matter, seen with demyelinating disease. Chest x-ray was negative for any active disease. EKG showed sinus bradycardia with a rate of 50 and a QTc of 435. * Urine: RBCs 15, WBC 78, leukocyte esterase positive. U tox positive for amphetamines and marijuana. * ED intervention: Patient received 1 mg topical scopolamine, 1 L of fluids, and 4 mg ondansetron. History: * Past medical history: Depression, Asthma * Surgical history: * Social history: Patient mentions that she used to drink alcohol daily in the past but she was depressed. She denied tobacco use. She mentioned that the last time she used meth was 6 months ago. She has a 19-year-old son who had to be put up for adoption due to a violent father. She keeps in touch with her son's adoptive parents and her son, though this social situation has caused her to be depressed and to resort to drinking in the past. Allergies: * No known drug allergies Home Medications: * Denies taking any home medications * Patient mentions that she used to take antidepressants in the past CODE STATUS: Full code Review of Systems Review of Systems Narrative Review of Systems: Review of Systems: * General: Admits to episodes of dizziness. Denies fevers, chills. * HEENT: Denies headache, congestion, vision changes, or sore throat. * Cardiac: Denies chest pain or palpitations. * Pulmonary: Denies shortness of breath or cough. * GI: Admits to some nausea associated with stress. Denies vomiting, diarrhea, constipation, melena, or hematochezia. * : Admits to recent onset urinary incontinence over the past 2 days. * MSK: Denies pain in the extremities, joints, or myalgias. * Neuro: Admits to left-sided weakness in the upper and lower extremity. Denies numbness or speech difficulty. Exam Vital Signs Temp Pulse Resp BP Pulse Ox O2 Del Method 98.4 F 60 18 135/86 H 99 Room Air 10/06/25 20:09 10/06/25 20:09 10/06/25 20:09 10/06/25 20:09 10/06/25 20:09 10/06/25 20:09 Narrative Exam General: Anxious. Tearful. Neurologic: GCS 13: Eyes open to verbal command (+3), confused (+4), obeys commands (+6). Alert and oriented x4 NIHSS: 6 * Arouses to minor stimulation (+1) * Unable to squeeze left hand (+1) * Left arm motor drift, does not hit bed (+1) * Left leg motor drift, does hit bed (+2) * Personal inattention, confusion (+1) HEENT: Normocephalic, atraumatic, mucous membranes moist. Pupils reactive to light. Heart: Regular rate and rhythm, normal S1 and S2, no murmurs. Lungs: Clear to auscultation bilaterally with no wheezing or crackles. Abdomen: Soft, nondistended, nontender, positive bowel sounds. No guarding or rebound tenderness. Extremities: No edema. 2+ radial and dorsalis pedis pulses bilaterally. Skin: Warm. Dry. No rash or ecchymoses. Results: Labs 10/07/25 04:43 10/07/25 04:43 Labs: Short CBC 10/06/25 Range/Units 13:18 WBC 8.7 (3.6-11.0) Thou/mm3 Hgb 13.9 (12.0-16.0) g/dL Hct 42.7 (36.0-46.0) % Plt Count 348 (140-440) Thou/mm3 BMP 10/06/25 13:18 Sodium 143 Potassium 4.0 Chloride 106 Carbon Dioxide 28.0 BUN 10 Creatinine 0.8 Glucose 94 Calcium 9.4 Cardiac Enzymes 10/06/25 Range/Units 13:18 Troponin I < 0.002 (0.0-0.045) ng/mL Liver Function 10/06/25 Range/Units 13:18 Total Bilirubin 0.5 (0.3-1.2) mg/dL AST 25 (0-34) U/L ALT 26 (10-49) U/L Alkaline Phosphatase 79 (46-116) U/L Albumin 4.5 (3.5-5.0) gm/dL ABG Interpretation ABG results: 10/06/25 13:18 VBG pH 7.41 VBG pCO2 47 VBG pO2 26 VBG Base Excess 4 H Quality Measures Quality Measures VTE prophylaxis and stroke Suspected type of Stroke: Acute Ischemic Tenecteplase given: Reason(s) Tenecteplase not given: Outside the time window not given Rehab services: PT evaluation ordered VTE Prophylaxis: pharmaceutical Antithrombotic by day 2:: ordered Statin ordered: <75 y/o high intensity dose Anticoagulation ordered for A-fib or flutter (current or hx): not indicated Medications Home Medications and Allergies Allergies Allergy/AdvReac Type Severity Reaction Status Date / Time No Known Allergies Allergy Verified 10/06/25 12:26 Visit Medications Acetaminophen (Acetaminophen 325 Mg Tablet) 650 mg PO Q6H PRN PRN Reason: Fever >100.4 Stop: 11/05/25 20:11 Aspirin (Aspirin Ec 81 Mg Tabec) 81 mg PO X1 ONE Stop: 10/06/25 20:32 Aspirin (Aspirin Ec 81 Mg Tabec) 81 mg PO DAILY DC Stop: 11/06/25 08:59 Clopidogrel Bisulfate (Clopidogrel Bisulfate 75 Mg Tablet) 75 mg PO X1 ONE Stop: 10/06/25 20:32 Clopidogrel Bisulfate (Clopidogrel Bisulfate 75 Mg Tablet) 75 mg PO DAILY DC Stop: 11/06/25 08:59 Enoxaparin Sodium (Enoxaparin Sod Inj 40 Mg/0.4 Ml Syringe) 40 mg SC QDAY DC Stop: 10/21/25 08:59 Discontinued Medications Sodium Chloride (Ns) 1,000 mls @ 999 mls/hr IV .Q1H1M ONE Stop: 10/06/25 14:03 Last Infusion: 10/06/25 19:40 Dose: Infused Ondansetron HCl (Ondansetron Inj 2 Mg/Ml Inj 2 Ml) 4 mg IVP X1 ONE; Protocol Stop: 10/06/25 13:04 Last Admin: 10/06/25 13:33 Dose: 4 mg Scopolamine (Scopolamine 1 Mg Tdsy) 1 mg TOP X1 ONE Stop: 10/06/25 13:04 Last Admin: 10/06/25 13:32 Dose: 1 mg Assessment & Plan Plan Summary: 50-year-old female with a past medical history of depression presented to the ED in the evening of 10/06/2025 with chief complaint of left-sided weakness and dizziness of 3 days duration. Brain MRI showed a large acute infarction in the right brainstem at the pontine level. Patient was admitted for stroke. 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 followed by weakness in her left leg followed by episodes of dizziness * Brain MRI showed a large acute infarction in the right brainstem at the pontine level * Patient had no sensory losses or facial palsy on exam * NIHSS 6 on admission: * Arouses to minor stimulation (+1) * Unable to squeeze left hand (+1) * Left arm motor drift, does not hit bed (+1) * Left leg motor drift, does hit bed (+2) * Personal inattention, confusion (+1) * Patient is 50 with no history of diabetes, tobacco use, hypertension, hyperlipidemia, and takes no medications for any of these conditions * Meth use is suspicious as a contributing factor to this patient's stroke * UTOX was positive for methamphetamines * Patient mentions that her most previous meth use was 6 months ago Plan: * Neurochecks every 4 hours * Aspirin 81 mg p.o. daily * Plavix 75 mg daily * Atorvastatin 40 mg p.o. at bedtime * Speech therapy referral * Head of Bed 30 Degrees, aspiration precautions * DVT prophylaxis with Lovenox 40 mg subcu daily * Lipid panel ordered * Permissive hypertension over the first 24 hours * Echo ordered * Physical therapy ordered * Neurology consulted #UTI * Urinalysis showed RBCs 15, WBC 78, leukocyte esterase positive. * Patient is afebrile, no leukocytosis * Patient endorses recent urinary incontinence, more likely related to UTI than stroke Plan: * Amoxicillin 5 mg p.o. 3 times daily * Follow-up urine culture #Urinary incontinence * Patient mentions a 2-day history of urinary incontinence * Given that this symptom has been occurring for about the same amount of time as the patient's left-sided weakness, this may be related to the patient's stroke * Consider infarction/lesions/damage to the pontine micturition center which may affect voluntary control of the bladder * However, leukocyte esterase positive urinalysis may better reinforce the cause of incontinence as infectious rather than pontine infarction-related Plan: * Amoxicillin as above #Hypertension stage II * Patient presented with a BP of 144/98 Plan: * Permissive hypertension in the setting of acute ischemic stroke #Asthma * Patient endorsed a history of asthma * No wheezes on exam, saturating 100% on room air Plan: * Monitor for now, consider DuoNebs if needed #History of alcohol use * Patient mentioned that she used to drink daily has been sober for several months * Patient mentioned that her last drink was the evening of 10/03/2025 * Patient showed no signs of withdrawal on exam, negative for tremors, diaphoresis, or vomiting Plan: * Referral to social service agency director #History of meth use * Patient mentioned that she has not used meth in the last 6 months but that she used to use meth frequently * Patient's UTOX was positive for methamphetamines Plan: * Referral to social service agency director #History of depression * Patient mentioned that she was prescribed various antidepression medications several years ago but never took them Plan: * Pending med rec * No direct invention at this time #Prediabetes * Patient's A1c 6.1 * Patient does not take insulin at home Plan: * Patient is n.p.o. for now * Consider starting insulin sliding scale and diet pending patient passes swallow [facility] Maintenance: DVT ppx: Lovenox 40 mg subcu daily Diet: Pending speech eval, n.p.o. for now IV lines: Peripheral IVs Code status: Full code Dispo: Telemetry monitoring floor, started treatment with aspirin and Plavix, echo ordered, physical therapy ordered, neurochecks Q4, neurology consulted. Patient was seen and discussed with my attending physician Dr. Humera TALAVERA and my senior resident Dr. Twin TALAVERA PGY-2. Israel Lamb DO PGY-1.
--- NOTE | 2025-10-06 20:33 | PD.RESHP ---
Documentation for date of: 10/06/25 HPI History of Present Illness History of present illness: HPI: 50-year-old female with a past medical history of depression and asthma presented to the ED in the evening of 10/06/2025 with chief complaint of left-sided weakness and dizziness. Patient mentioned that she woke up on the morning of 10/04/2025 and had trouble gripping with her left hand. This was followed by several episodes of dizziness over the past 2 days with development of weakness in her left leg that prompted her to visit the ED. She also endorsed recent onset urinary incontinence over the past 2 days. She denied loss of control of her bowel. She also denied vision changes, dysarthria, anesthesia, paresthesia or dysesthesia. She was found to have a large acute infarction in the right brainstem at the pontine level on brain MRI. Patient was admitted for acute ischemic stroke of the right brainstem at the pontine level. ED Course: Significant vitals on arrival: BP 144/98, pulse 56. Significant labs: ESR 49, VBG O2 sat 49% likely an error, A1c 6.1. Imaging: Brain MRI showed : Large acute infarct right brainstem, 13 mm, pontine level. Punctate focus increased signal left frontal white matter, seen with demyelinating disease. Chest x-ray was negative for any active disease. EKG showed sinus bradycardia with a rate of 50 and a QTc of 435. Urine: RBCs 15, WBC 78, leukocyte esterase positive. U tox positive for amphetamines and marijuana. ED intervention: Patient received 1 mg topical scopolamine, 1 L of fluids, and 4 mg ondansetron. History: Past medical history: Depression, Asthma Surgical history: Social history: Patient mentions that she used to drink alcohol daily in the past but she was depressed. She denied tobacco use. She mentioned that the last time she used meth was 6 months ago. She has a 19-year-old son who had to be put up for adoption due to a violent father. She keeps in touch with her son's adoptive parents and her son, though this social situation has caused her to be depressed and to resort to drinking in the past. Allergies: No known drug allergies Home Medications: Denies taking any home medications Patient mentions that she used to take antidepressants in the past CODE STATUS: Full code Review of Systems Review of Systems Narrative Review of Systems: Review of Systems: General: Admits to episodes of dizziness. Denies fevers, chills. HEENT: Denies headache, congestion, vision changes, or sore throat. Cardiac: Denies chest pain or palpitations. Pulmonary: Denies shortness of breath or cough. GI: Admits to some nausea associated with stress. Denies vomiting, diarrhea, constipation, melena, or hematochezia. : Admits to recent onset urinary incontinence over the past 2 days. MSK: Denies pain in the extremities, joints, or myalgias. Neuro: Admits to left-sided weakness in the upper and lower extremity. Denies numbness or speech difficulty. Exam Vital Signs Temp Pulse Resp BP Pulse Ox O2 Del Method 98.4 F 60 18 135/86 H 99 Room Air 10/06/25 20:09 10/06/25 20:09 10/06/25 20:09 10/06/25 20:09 10/06/25 20:09 10/06/25 20:09 Narrative Exam General: Anxious. Tearful. Neurologic: GCS 13: Eyes open to verbal command (+3), confused (+4), obeys commands (+6). Alert and oriented x4 NIHSS: 6 Arouses to minor stimulation (+1) Unable to squeeze left hand (+1) Left arm motor drift, does not hit bed (+1) Left leg motor drift, does hit bed (+2) Personal inattention, confusion (+1) HEENT: Normocephalic, atraumatic, mucous membranes moist. Pupils reactive to light. Heart: Regular rate and rhythm, normal S1 and S2, no murmurs. Lungs: Clear to auscultation bilaterally with no wheezing or crackles. Abdomen: Soft, nondistended, nontender, positive bowel sounds. No guarding or rebound tenderness. Extremities: No edema. 2+ radial and dorsalis pedis pulses bilaterally. Skin: Warm. Dry. No rash or ecchymoses. Results: Labs 10/07/25 04:43 10/07/25 04:43 Labs: Short CBC 10/06/25 Range/Units 13:18 WBC 8.7 (3.6-11.0) Thou/mm3 Hgb 13.9 (12.0-16.0) g/dL Hct 42.7 (36.0-46.0) % Plt Count 348 (140-440) Thou/mm3 BMP 10/06/25 13:18 Sodium 143 Potassium 4.0 Chloride 106 Carbon Dioxide 28.0 BUN 10 Creatinine 0.8 Glucose 94 Calcium 9.4 Cardiac Enzymes 10/06/25 Range/Units 13:18 Troponin I < 0.002 (0.0-0.045) ng/mL Liver Function 10/06/25 Range/Units 13:18 Total Bilirubin 0.5 (0.3-1.2) mg/dL AST 25 (0-34) U/L ALT 26 (10-49) U/L Alkaline Phosphatase 79 (46-116) U/L Albumin 4.5 (3.5-5.0) gm/dL ABG Interpretation ABG results: 10/06/25 13:18 VBG pH 7.41 VBG pCO2 47 VBG pO2 26 VBG Base Excess 4 H Quality Measures Quality Measures VTE prophylaxis and stroke Suspected type of Stroke: Acute Ischemic Tenecteplase given: Reason(s) Tenecteplase not given: Outside the time window not given Rehab services: PT evaluation ordered VTE Prophylaxis: pharmaceutical Antithrombotic by day 2:: ordered Statin ordered: <75 y/o high intensity dose Anticoagulation ordered for A-fib or flutter (current or hx): not indicated Medications Home Medications and Allergies Allergies Allergy/AdvReac Type Severity Reaction Status Date / Time No Known Allergies Allergy Verified 10/06/25 12:26 Visit Medications Acetaminophen (Acetaminophen 325 Mg Tablet) 650 mg PO Q6H PRN PRN Reason: Fever >100.4 Stop: 11/05/25 20:11 Aspirin (Aspirin Ec 81 Mg Tabec) 81 mg PO X1 ONE Stop: 10/06/25 20:32 Aspirin (Aspirin Ec 81 Mg Tabec) 81 mg PO DAILY [facility] Stop: 11/06/25 08:59 Clopidogrel Bisulfate (Clopidogrel Bisulfate 75 Mg Tablet) 75 mg PO X1 ONE Stop: 10/06/25 20:32 Clopidogrel Bisulfate (Clopidogrel Bisulfate 75 Mg Tablet) 75 mg PO DAILY [facility] Stop: 11/06/25 08:59 Enoxaparin Sodium (Enoxaparin Sod Inj 40 Mg/0.4 Ml Syringe) 40 mg SC QDAY DC Stop: 10/21/25 08:59 Discontinued Medications Sodium Chloride (Ns) 1,000 mls @ 999 mls/hr IV .Q1H1M ONE Stop: 10/06/25 14:03 Last Infusion: 10/06/25 19:40 Dose: Infused Ondansetron HCl (Ondansetron Inj 2 Mg/Ml Inj 2 Ml) 4 mg IVP X1 ONE; Protocol Stop: 10/06/25 13:04 Last Admin: 10/06/25 13:33 Dose: 4 mg Scopolamine (Scopolamine 1 Mg Tdsy) 1 mg TOP X1 ONE Stop: 10/06/25 13:04 Last Admin: 10/06/25 13:32 Dose: 1 mg Assessment & Plan Plan Summary: 50-year-old female with a past medical history of depression presented to the ED in the evening of 10/06/2025 with chief complaint of left-sided weakness and dizziness of 3 days duration. Brain MRI showed a large acute infarction in the right brainstem at the pontine level. Patient was admitted for stroke. 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 followed by weakness in her left leg followed by episodes of dizziness Brain MRI showed a large acute infarction in the right brainstem at the pontine level Patient had no sensory losses or facial palsy on exam NIHSS 6 on admission: Arouses to minor stimulation (+1) Unable to squeeze left hand (+1) Left arm motor drift, does not hit bed (+1) Left leg motor drift, does hit bed (+2) Personal inattention, confusion (+1) Patient is 50 with no history of diabetes, tobacco use, hypertension, hyperlipidemia, and takes no medications for any of these conditions Meth use is suspicious as a contributing factor to this patient's stroke UTOX was positive for methamphetamines Patient mentions that her most previous meth use was 6 months ago Plan: Neurochecks every 4 hours Aspirin 81 mg p.o. daily Plavix 75 mg daily Atorvastatin 40 mg p.o. at bedtime Speech therapy referral Head of Bed 30 Degrees, aspiration precautions DVT prophylaxis with Lovenox 40 mg subcu daily Lipid panel ordered Permissive hypertension over the first 24 hours Echo ordered Physical therapy ordered Neurology consulted #UTI Urinalysis showed RBCs 15, WBC 78, leukocyte esterase positive. Patient is afebrile, no leukocytosis Patient endorses recent urinary incontinence, more likely related to UTI than stroke Plan: Amoxicillin 5 mg p.o. 3 times daily Follow-up urine culture #Urinary incontinence Patient mentions a 2-day history of urinary incontinence Given that this symptom has been occurring for about the same amount of time as the patient's left-sided weakness, this may be related to the patient's stroke Consider infarction/lesions/damage to the pontine micturition center which may affect voluntary control of the bladder However, leukocyte esterase positive urinalysis may better reinforce the cause of incontinence as infectious rather than pontine infarction-related Plan: Amoxicillin as above #Hypertension stage II Patient presented with a BP of 144/98 Plan: Permissive hypertension in the setting of acute ischemic stroke #Asthma Patient endorsed a history of asthma No wheezes on exam, saturating 100% on room air Plan: Monitor for now, consider DuoNebs if needed #History of alcohol use Patient mentioned that she used to drink daily has been sober for several months Patient mentioned that her last drink was the evening of 10/03/2025 Patient showed no signs of withdrawal on exam, negative for tremors, diaphoresis, or vomiting Plan: Referral to medical social consultant #History of meth use Patient mentioned that she has not used meth in the last 6 months but that she used to use meth frequently Patient's UTOX was positive for methamphetamines Plan: Referral to medical social consultant #History of depression Patient mentioned that she was prescribed various antidepression medications several years ago but never took them Plan: Pending med rec No direct invention at this time #Prediabetes Patient's A1c 6.1 Patient does not take insulin at home Plan: Patient is n.p.o. for now Consider starting insulin sliding scale and diet pending patient passes [facility] Maintenance: DVT ppx: Lovenox 40 mg subcu daily Diet: Pending speech eval, n.p.o. for now IV lines: Peripheral IVs Code status: Full code Dispo: Telemetry monitoring floor, started treatment with aspirin and Plavix, echo ordered, physical therapy ordered, neurochecks Q4, neurology consulted. Patient was seen and discussed with my attending physician Dr. Humrea TALAVERA and my senior resident Dr. Twin TALAVERA PGY-2. Israel Lamb DO PGY-1.
[2025-10-06 20:43] LABS: Collection Type, Urine Clean Catch
--- NOTE | 2025-10-06 20:46 | PC.NURSE ---
CALL MADE FROM PRIMARY CAREGIVER DAMIEN PIERCE FOR AN UPDATE ON PTS STATUS
[2025-10-06 20:48] LABS: Bilirubin,Urine Negative (Negative); Blood,Urine Negative (Negative); Clarity,Urine Turbid (Clear/Hazy); Color,Urine Lt-Yellow (Lt Yel-Yel); Glucose, Urine Negative (Negative); Ketones,Urine Negative (Negative); Leukocyte Esterase,Urine Positive (Negative); Nitrite,Urine Negative (Negative); PH,Urine 6.5 (5.0-7.0); Protein,Urine Negative (Neg - Trace); RBC,Urine 15 /hpf (0-3); Specific Gravity,Urine 1.026 (1.001-1.035); Squamous Epithelial Cell,Urine 3 /hpf (0-5); Urobilinogen,Urine Negative mg/dL (0.0-1.0); WBC,Urine 78 /hpf (0-5)
[2025-10-06] MEDS: CLOPIDOGREL BISULFATE 75 MG TABLET PO (20:49)
[2025-10-06] MEDS: ASPIRIN EC 81 MG TABEC PO (20:49)
[2025-10-06 20:50] LABS: Culture Indicated,Urine Yes
[2025-10-06 20:56] LABS: Amphetamine/Methamp Scrn,U Positive (Negative); Barbiturate Screen,Urine Negative (Negative); Benzodiazepines Screen,Urine Negative (Negative); Benzoylecgonine Screen, Ur Negative (Negative); Fentanyl Screen,Urine Negative (Negative); Opiate Screen,Urine Negative (Negative); THC Screen,Urine Positive (Negative)
--- NOTE | 2025-10-06 20:59 | PC.NURSE ---
PT HAS BACK SPASMS FOR AT LEAST A YEAR, PT SAYS IT IS DUE TO SPINAL STENOSIS
[2025-10-06] MEDS: cefTRIAXone/D5w 1gm IV premix 1 GM/50 ML BAG IV (21:31)
[2025-10-06 22:28] VITALS: BP 138/90; PULSE 68; RESP 17; TEMP 36.7; O2SAT 99
[2025-10-06] MEDS: ATORVASTATIN CALCIUM 20 MG TABLET 40 MG PO (22:36)
[2025-10-06] MEDS: AMOXICILLIN 250 MG CAPSULE 500 MG PO (22:36)
[2025-10-07] VITALS (8 sets, daily range): BP systolic 102–136; BP diastolic 82–89; PULSE 47–79; RESP 14–98; TEMP 36.1–36.7; O2SAT 96–98; BMI 33.9
[2025-10-07] MEDS: ACETAMINOPHEN 325 MG TABLET 650 MG PO ×2 (05:02→20:06)
[2025-10-07] MEDS: AMOXICILLIN 250 MG CAPSULE 500 MG PO ×3 (05:02→21:27)
[2025-10-07 05:53] LABS: Basophils # (Auto) 0.0 Thou/mm3 (0.0-0.2); Basophils % (Auto) 0 % (0-2.5); Eosinophils # (Auto) 0.2 Thou/mm3 (0.0-0.5); Eosinophils % (Auto) 3 % (0-10); Hematocrit 38.9 % (36.0-46.0); Hemoglobin 12.9 g/dL (12.0-16.0); Immature Granulocytes Auto 0.02 Thou/mm3 (0.00-0.00); Lymphocytes # (Auto) 3.3 Thou/mm3 (1.0-4.8); Lymphocytes % (Auto) 41 % (10-50); Mean Corpuscular HGB Conc 33.2 g/dl (31.0-37.0); Mean Corpuscular Hemoglobin 31.5 pg (25.0-35.0); Mean Corpuscular Volume 95 fL (80-100); Monocytes # (Auto) 0.9 Thou/mm3 (0.0-0.8); Monocytes % (Auto) 11 % (0-12); Neutrophils # (Auto) 3.6 Thou/mm3 (1.8-7.7); Neutrophils % (Auto) 45 % (37-80); Nucleated Red Blood Cell # 0.00 Thou/mm3 (0.00-0.00); Nucleated Red Blood Cell % 0 /100 WBC (0); Platelet Count 361 Thou/mm3 (140-440); RDW Standard Deviation 46.3 fL (36.4-46.3); Red Blood Count 4.10 Miln/mm3 (4.00-5.20); White Blood Count 8.0 Thou/mm3 (3.6-11.0)
[2025-10-07 05:55] LABS: Alanine Aminotransferase 23 U/L (10-49); Albumin, Serum 4.0 gm/dL (3.5-5.0); Albumin/Globulin Ratio 1.4 (1.2-2.2); Alkaline Phosphatase 66 U/L (46-116); Anion Gap 8 (7-16); Aspartate Amino Transferase 20 U/L (0-34); BUN/Creatinine Ratio 9 Ratio (12-20); Bilirubin,Total 0.5 mg/dL (0.3-1.2); Blood Urea Nitrogen 8 mg/dL (9-23); Calcium 9.3 mg/dL (8.3-10.6); Calcium (Corrected) 9.3 mg/dL (8.5-10.1); Carbon Dioxide 30.0 mMol/L (20.0-31.0); Cardiac Risk Estimate 5.5 RATIO (3.7-5.6); Chloride 106 mMol/L (98-107); Cholesterol 202 mg/dL (132-200); Creatinine (Component) 0.9 mg/dL (0.6-1.3); Estimated Creatinine Clearance 88.0 mL/min (>60); Globulin 2.9 gm/dL (2.3-3.5); Glucose 96 mg/dL (74-106); HDL Cholesterol 37 mg/dL (40-60); LDL Cholesterol,Calculated 130 mg/dL (0-130); Magnesium 1.8 mg/dL (1.6-2.6); Osmolality,Calculated 285 (275-295); Potassium 3.4 mMol/L (3.4-5.1); Sodium 144 mMol/L (136-145); Total Protein 6.9 gm/dL (5.7-8.2); Triglycerides 175 mg/dL (30-150); eGFR > 60 See Note
[2025-10-07] MEDS: CLOPIDOGREL BISULFATE 75 MG TABLET PO (08:16)
[2025-10-07] MEDS: ENOXAPARIN SOD INJ 40 MG/0.4 ML SYRINGE SC (08:17)
[2025-10-07] MEDS: ASPIRIN EC 81 MG TABEC PO (08:17)
--- NOTE | 2025-10-07 14:16 | PC.PT ---
Patient is safe to ambulate to the bathroom xI and in the halls with 1 staff assist for safety over long distances. RN made aware.
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
--- NOTE | 2025-10-07 15:12 | ESPR_ITS ---
<Statement entered by Johny Malik MD - 10/07/25 20:37> Overnight admission. MRI confirmed large, acute infarcts in right brainstem at pontine level. At bedside, patient endorses weakness in her left upper and lower extremities with paresthesia of her left hand. On exam, there is weakness in her left upper extremity with noted ataxia. Noted to be positive for amphetamines on her UTOX and states that she had used on day of admission and counseled on future use. Lipid panel showed TGL 175, cholesterol 202, LDL 130, HDL 37. A1c 6.1%. Will continue high intensity statin, DAPT. Also on antibiotics for UTI and will follow-up cultures. Will also follow-up neurology recommendations. Physical therapy recommending outpatient PT services. ----- Note reviewed and agree with care plan as documented. Please refer to the note below for further details. Plan discussed with attending physician Dr. Soheila Malik MD PGY-2 Internal Medicine Documentation for date of: 10/07/25 Subjective Subjective Interval history: 50-year-old female with a past medical history of depression and asthma presented to the ED in the evening of 10/06/2025 with chief complaint of left- sided weakness and dizziness. Patient mentioned that she woke up on the morning of 10/04/2025 and had trouble gripping with her left hand. This was followed by several episodes of dizziness over the past 2 days with development of weakness in her left leg that prompted her to visit the ED. She also endorsed recent onset urinary incontinence over the past 2 days. She denied loss of control of her bowel. She also denied vision changes, dysarthria, anesthesia, paresthesia or dysesthesia. She was found to have a large acute infarction in the right brainstem at the pontine level on brain MRI. Admitted for stroke managment and further evaluation. Ms. Elizalde is alert and oriented this morning. She verbalizes understanding of her previous symptoms and endorses the history as stated above. She is left- handed. Neurological examination reveals 4+ strength in right upper extremities and +3 strength in left extremities. No facial droop of either side noted, patient not dysarthric. Ms. Elizalde is able to walk in a straight line to and from her bed as well as with tandem walking. Cranial nerves are shown to be in- tact. Sensation in face, torso, and lower extremities in tact. Reflexes 2+ throughout. Exam Vital Signs Temp Pulse Resp BP Pulse Ox O2 Del Method 97.0 F 60 16 136/87 H 96 Room Air 10/07/25 12:00 10/07/25 12:00 10/07/25 12:00 10/07/25 12:00 10/07/25 12:00 10/07/25 12:00 Narrative Exam General: alert and oriented to self/place/year, no acute distress, able to speak full sentences HEENT: NC/AT, mucous membranes moist, bilateral sclera anicteric Cardiovascular: regular rate and rhythm, S1/S2 present, no murmurs appreciated Pulmonary: clear to auscultation bilaterally, no rales/rhonchi/wheezes Abdominal: soft, nontender, present bowel sounds Musculoskeletal: no peripheral edema. 4+ strength RUE, RLE; 3+ in LUE, LLE. 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, demonstrated by patient's difficulty with holding fork Skin: Warm, well-perfused Objective Labs 10/08/25 05:38 10/08/25 05:38 Labs: Laboratory Results - last 24 hr 10/06/25 10/07/25 20:37 04:43 WBC 8.0 RBC 4.10 Hgb 12.9 Hct 38.9 MCV 95 MCH 31.5 MCHC 33.2 RDW Std Deviation 46.3 Plt Count 361 Neut % (Auto) 45 Lymph % (Auto) 41 [place] % (Auto) 11 Eos % (Auto) 3 Baso % (Auto) 0 Neut # (Auto) 3.6 Lymph # (Auto) 3.3 [place] # (Auto) 0.9 H Eos # (Auto) 0.2 Baso # (Auto) 0.0 Immature Gran # (Auto) 0.02 H Absolute Nucleated RBC 0.00 Immature Gran % 0 Nucleated RBC % 0 Sodium 144 Potassium 3.4 D Chloride 106 Carbon Dioxide 30.0 Anion Gap 8 BUN 8 L Creatinine 0.9 Estim Creat Clear Calc 88.0 eGFR > 60 BUN/Creatinine Ratio 9 L Glucose 96 Calculated Osmolality 285 Calcium 9.3 Corrected Calcium 9.3 Magnesium 1.8 Total Bilirubin 0.5 AST 20 ALT 23 Alkaline Phosphatase 66 Total Protein 6.9 Albumin 4.0 D Globulin 2.9 Albumin/Globulin Ratio 1.4 Triglycerides 175 H Cholesterol 202 H LDL Cholesterol, Calc 130 HDL Cholesterol 37 L Cholesterol/HDL Ratio 5.5 Ur Collection Type Clean Catch Urine Color Lt-Yellow Urine Clarity Turbid A Urine pH 6.5 Ur Specific [place] 1.026 Urine Protein Negative Urine Glucose (UA) Negative Urine Ketones Negative Urine Blood Negative Urine Nitrite Negative Urine Bilirubin Negative Urine Urobilinogen (Auto) Negative Ur Leukocyte Esterase Positive Urine RBC 15 H Urine WBC 78 H Ur Squamous Epith Cells 3 Urine Bacteria None Ur Culture Indicated? Yes Urine Opiates Screen Negative Urine Fentanyl Screen Negative Ur Barbiturates Screen Negative U Amphetamin/Meth Scrn Positive A U Benzodiazepines Scrn Negative U Cocaine Metab Screen Negative U Marijuana (THC) Screen Positive A ABG Interpretation ABG results: 10/06/25 13:18 VBG pH 7.41 VBG pCO2 47 VBG pO2 26 VBG Base Excess 4 H Quality Measures Quality Measures none Assessment & Plan Assessment Current Active Medications: Generic Name Dose Route Start Last Admin Trade Name Freq PRN Reason Stop Dose Admin Acetaminophen 650 mg 10/07/25 04:46 10/07/25 05:02 Acetaminophen 325 Mg Tablet PO 11/05/25 20:11 650 mg Q6H PRN Administration Fever >100.4 or pain 1-3 Amoxicillin 500 mg 10/06/25 22:00 10/07/25 14:00 Amoxicillin 250 Mg Capsule PO 10/13/25 21:59 500 mg TID DC Administration Aspirin 81 mg 10/07/25 09:00 10/07/25 08:17 Aspirin Ec 81 Mg Tabec PO 11/06/25 08:59 81 mg DAILY DC Administration Atorvastatin Calcium 80 mg 10/07/25 21:00 Atorvastatin Calcium 20 Mg Tablet PO 11/06/25 20:59 HS DC Clopidogrel Bisulfate 75 mg 10/07/25 09:00 10/07/25 08:16 Clopidogrel Bisulfate 75 Mg Tablet PO 11/06/25 08:59 75 mg DAILY DC Administration Enoxaparin Sodium 40 mg 10/07/25 09:00 10/07/25 08:17 Enoxaparin Sod Inj 40 Mg/0.4 Ml Syringe SC 10/21/25 08:59 40 mg QDAY DC Administration Plan 50-year-old female with a past medical history of depression presented to the ED in the evening of 10/06/2025 with chief complaint of left-sided weakness and dizziness of 3 days duration. Brain MRI showed a large acute infarction ~13mm in the right brainstem at the pontine level. Patient was admitted for stroke. 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 followed by weakness in her left leg followed by episodes of dizziness Brain MRI showed a large acute infarction in the right brainstem at the pontine level Patient had no sensory losses or facial palsy on exam NIHSS 6 on admission: Arouses to minor stimulation (+1) Unable to squeeze left hand (+1) Left arm motor drift, does not hit bed (+1) Left leg motor drift, does hit bed (+2) Personal inattention, confusion (+1) Patient is 50 with no history of diabetes, tobacco use, hypertension, hyperlipidemia, and takes no medications for any of these conditions Meth use is suspicious as a contributing factor to this patient's stroke, UTOX was positive for methamphetamines Endorses hx of marijuana use 10/07 Admission Triglycerides 175, Cholesterol 202 10/07 visit by Physical Therapy: Patient is safe to ambulate to the bathroom xI and in the halls with 1 staff assist for safety over long distances. RN made aware. Has not demonstrated dysarthria, dysphagia in morning while eating breakfast and lunch -Follow up neurology consultation -q4h neurochecks -Aspirin 81 mg po daily -Plavix 75 mg daily -Atorvastatin 80mg PO bedtime q24h #UTI #Urinary incontinence Patient mentions a 2-day history of urinary incontinence Given that this symptom has been occurring for about the same amount of time as the patient's left-sided weakness, this may be related to the patient's stroke Consider infarction/lesions/damage to the pontine micturition center which may affect voluntary control of the bladder However, leukocyte esterase positive urinalysis may better reinforce the cause of incontinence as infectious rather than pontine infarction-related 10/06 Urinalysis showed RBCs 15, WBC 78, leukocyte esterase positive. Patient is afebrile, no leukocytosis Patient endorses recent urinary incontinence, more likely related to UTI than stroke Ddx: Urinary incontinence due to UTI vs stroke: overflow incontinence >>urge incontinence>>>stress incontinence -Amoxicillin 5 mg p.o. 3 times daily 10/06 - -Follow-up urine culture #Hypertension stage II Patient presented with a BP of 144/98 -Permissive HTN overnight as stated above #Asthma Pt endorses hx of asthma dx Clinically monitor, to consider inhaled medication if indicated #History of alcohol use Patient mentioned that she used to drink daily has been sober for several months Patient mentioned that her last drink was the evening of 10/03/2025 Patient showed no signs of withdrawal on exam, negative for tremors, diaphoresis, or vomiting -Referral to social media intern #History of meth use Patient mentioned that she has not used meth in the last 6 months but that she used to use meth frequently Patient's UTOX was positive for methamphetamines -Referral to social media intern -Counseled patients on the dangers and consequences of methamphetamine use #History of depression Patient mentioned that she was prescribed various antidepressant medications several years ago but never took them -No direct invention at this time #Prediabetes Patient's A1c 6.1 Patient does not take insulin at home -Regular Diet -Glucose checks with daily labs Hospital Maintenance: DVT ppx: Lovenox 40 mg subcu daily Diet: Pending speech eval, n.p.o. for now IV lines: Peripheral IVs Code status: Full code Dispo: Telemetry monitoring floor, started treatment with aspirin and Plavix, echo ordered, physical therapy ordered, neurochecks Q4, neurology consulted. Patient seen and discussed with attending physician Dr. Diego Parnell and senior resident Dr. Johny Mckeon MD PGY-1 Attending Provider Attestation/Addendum I have examined the patient, reviewed labs and imaging findings, discussed the case with the resident(s), and reviewed entered orders. I agree with the plan of care as outlined in this note, with these additional summaries/recommendations: Patient seen at bedside. No acute overnight events. Patient continues to endorse left-sided weakness. Patient diagnosed with acute/subacute CVA. MRI/MRA revealed large acute infract right brainstem which is 13 mm at pontine level. In-house neurology was consulted on admission. Continue DAPT therapy and high intensity statin. Continue to control vascular risk factors. UTOX positive for methamphetamines and THC and patient was counseled on cessation. Patient was informed she has prediabetes and we will continue with lifestyle interventions. Patient is pending echocardiogram with bubble study. Patient was seen by physical therapy who recommends outpatient PT services upon DC. Continue antibiotics for urinary tract infection urine culture pending. Anticipate discharge in the next 24 to 48 hours. Patient updated on the plan and in agreement. All questions answered to satisfaction. Please see residents note for additional details and management. Dr. Soheila MD
[2025-10-07] MEDS: ATORVASTATIN CALCIUM 20 MG TABLET 80 MG PO (20:07)
[2025-10-08] VITALS (8 sets, daily range): BP systolic 101–137; BP diastolic 73–87; PULSE 56–92; RESP 14–95; TEMP 36.2–36.7; O2SAT 95–98; BMI 34.0
[2025-10-08] MEDS: AMOXICILLIN 250 MG CAPSULE 500 MG PO ×3 (05:34→21:14)
[2025-10-08 06:32] LABS: Basophils # (Auto) 0.1 Thou/mm3 (0.0-0.2); Basophils % (Auto) 1 % (0-2.5); Eosinophils # (Auto) 0.3 Thou/mm3 (0.0-0.5); Eosinophils % (Auto) 4 % (0-10); Hematocrit 41.1 % (36.0-46.0); Hemoglobin 13.4 g/dL (12.0-16.0); Immature Granulocytes Auto 0.01 Thou/mm3 (0.00-0.00); Lymphocytes # (Auto) 3.1 Thou/mm3 (1.0-4.8); Lymphocytes % (Auto) 41 % (10-50); Mean Corpuscular HGB Conc 32.6 g/dl (31.0-37.0); Mean Corpuscular Hemoglobin 30.0 pg (25.0-35.0); Mean Corpuscular Volume 92 fL (80-100); Monocytes # (Auto) 0.9 Thou/mm3 (0.0-0.8); Monocytes % (Auto) 12 % (0-12); Neutrophils # (Auto) 3.3 Thou/mm3 (1.8-7.7); Neutrophils % (Auto) 43 % (37-80); Nucleated Red Blood Cell # 0.00 Thou/mm3 (0.00-0.00); Nucleated Red Blood Cell % 0 /100 WBC (0); Platelet Count 359 Thou/mm3 (140-440); RDW Standard Deviation 43.8 fL (36.4-46.3); Red Blood Count 4.46 Miln/mm3 (4.00-5.20); White Blood Count 7.5 Thou/mm3 (3.6-11.0)
[2025-10-08 07:15] LABS: Alanine Aminotransferase 21 U/L (10-49); Albumin, Serum 4.2 gm/dL (3.5-5.0); Albumin/Globulin Ratio 1.5 (1.2-2.2); Alkaline Phosphatase 73 U/L (46-116); Anion Gap 11 (7-16); Aspartate Amino Transferase 19 U/L (0-34); BUN/Creatinine Ratio 13 Ratio (12-20); Bilirubin,Total 0.6 mg/dL (0.3-1.2); Blood Urea Nitrogen 10 mg/dL (9-23); Calcium 9.6 mg/dL (8.3-10.6); Calcium (Corrected) 9.6 mg/dL (8.5-10.1); Carbon Dioxide 26.0 mMol/L (20.0-31.0); Chloride 106 mMol/L (98-107); Creatinine (Component) 0.8 mg/dL (0.6-1.3); Estimated Creatinine Clearance 99.1 mL/min (>60); Globulin 2.8 gm/dL (2.3-3.5); Glucose 105 mg/dL (74-106); Magnesium 1.5 mg/dL (1.6-2.6); Osmolality,Calculated 283 (275-295); Phosphorous 5.6 mg/dL (2.4-5.1); Potassium 3.8 mMol/L (3.4-5.1); Sodium 143 mMol/L (136-145); Total Protein 7.0 gm/dL (5.7-8.2); eGFR > 60 See Note
--- NOTE | 2025-10-08 08:09 | PC.SS ---
SS met with patient who was alert/oriented. Patient was able to verify demographics. Patient states she's independent with all ADL's. No DME. Patient resides on her mothers property in a trailer. Patient was admitted for a stroke. Patient worked with PT who recommended o/p PT only. Family provides transportation. Patient tox report was positive for meth and THC. Resources to be provided. Patient states she has hx: depression. PCP: [facility]. Pharmacy: [facility]. Discharge plan is to return home. Alt medical decision maker: mother, Elisabeth Elizalde,
[2025-10-08 08:43] LABS: INR 1.0 (0.9-1.3); Partial Thromboplastin Time 27.8 Seconds (22.0-36.0); Prothrombin Time 10.9 Seconds (9.0-12.2)
[2025-10-08] MEDS: ASPIRIN EC 81 MG TABEC PO (09:17)
[2025-10-08] MEDS: CLOPIDOGREL BISULFATE 75 MG TABLET PO (09:17)
--- NOTE | 2025-10-08 11:03 | PC.SS ---
rounding note: Pending echo then discharge
--- NOTE | 2025-10-08 13:37 | PC.PT ---
Patient will be D/C from PT / she is back at her baseline for bed mobility, transfers, and ambulation. Patient is safe to ambulate to the bathroom and in the halls with no AD and no staff. RN made aware.
--- NOTE | 2025-10-08 13:43 | ESPR_ITS ---
Documentation for date of: 10/08/25 Subjective Subjective Interval history: Patient was awake and appeared in better spirits today. She reports that she was able to walk with physical therapy today up 2 flights of stairs and was able to keep going on her own. On examination displays significant improvements in strength of the upper and lower left extremities compared to yesterday. Patient is cleared for discharge. Continue DAPT for 21 days followed by Plavix alone. Ordered hypercoagulopathy workup (including antiphosphospholipid, antithrombin III, cardiolipin, factor V Leiden, lupus, protein C activity and antigen, protein S activity and antigen, and prothrombin factor II, and PATRICIA screen), follow up results outpatient and Neurology follow up in 2 weeks. Exam Vital Signs Temp Pulse Resp BP Pulse Ox O2 Del Method 98.1 F 66 18 123/85 H 98 Room Air 10/08/25 08:00 10/08/25 08:00 10/08/25 08:00 10/08/25 08:00 10/08/25 08:00 10/08/25 08:00 Narrative Exam Physical Exam General: Awake, conversational, better mood than yesterday. HEENT: Normocephalic, atraumatic, mucous membranes moist. Heart: Regular rate and rhythm, normal S1 and S2, no murmurs. Lungs: Clear to auscultation with no wheezing or crackles. Abdomen: Soft, nondistended, nontender, positive bowel sounds. ?No guarding or rebound tenderness. Neuro Stroke Exam: -Alert and oriented x3. -CN II-XII intact. -Normal visual jeff. -Normal fluent speech. -No facial droop. -Strength 5/5 right arm, 5/5 right billet bed operator strength. Strength 4/5 left arm, 4/5 left billet bed operator strength. -Strength 5/5 right lower extremity. Strength 4/5 left lower extremity. -Intact sensation bilaterally. -Normal [id number], normal ghmc-[id number] testing other than the left side due to weakness as above. Extremities: No edema. Skin: No rash or ecchymoses. Objective Labs 10/09/25 05:27 10/09/25 05:27 Labs: Laboratory Results - last 24 hr 10/08/25 05:38 WBC 7.5 RBC 4.46 Hgb 13.4 Hct 41.1 MCV 92 MCH 30.0 MCHC 32.6 RDW Std Deviation 43.8 Plt Count 359 Neut % (Auto) 43 Lymph % (Auto) 41 [place] % (Auto) 12 Eos % (Auto) 4 Baso % (Auto) 1 Neut # (Auto) 3.3 Lymph # (Auto) 3.1 [place] # (Auto) 0.9 H Eos # (Auto) 0.3 Baso # (Auto) 0.1 Immature Gran # (Auto) 0.01 H Absolute Nucleated RBC 0.00 Immature Gran % 0 Nucleated RBC % 0 PT 10.9 INR 1.0 APTT 27.8 Sodium 143 Potassium 3.8 Chloride 106 Carbon Dioxide 26.0 Anion Gap 11 BUN 10 Creatinine 0.8 Estim Creat Clear Calc 99.1 eGFR > 60 BUN/Creatinine Ratio 13 Glucose 105 Calculated Osmolality 283 Calcium 9.6 Corrected Calcium 9.6 Phosphorus 5.6 H Magnesium 1.5 L Total Bilirubin 0.6 AST 19 ALT 21 Alkaline Phosphatase 73 Total Protein 7.0 Albumin 4.2 Globulin 2.8 Albumin/Globulin Ratio 1.5 ABG Interpretation ABG results: 10/06/25 13:18 VBG pH 7.41 VBG pCO2 47 VBG pO2 26 VBG Base Excess 4 H Quality Measures Quality Measures VTE prophylaxis and stroke Suspected type of Stroke: Acute Ischemic Tenecteplase given: Reason(s) Tenecteplase not given: Outside the time window not given Rehab services: PT evaluation ordered and Speech Language Pathology eval ordered VTE Prophylaxis: pharmaceutical Antithrombotic by day 2:: not indicated (describe) Statin ordered: <75 y/o high intensity dose Anticoagulation ordered for A-fib or flutter (current or hx): not indicated Assessment & Plan Assessment Current Active Medications: Generic Name Dose Route Start Last Admin Trade Name Freq PRN Reason Stop Dose Admin Acetaminophen 650 mg 10/07/25 04:46 10/07/25 20:06 Acetaminophen 325 Mg Tablet PO 11/05/25 20:11 650 mg Q6H PRN Administration Fever >100.4 or pain 1-3 Amoxicillin 500 mg 10/06/25 22:00 10/08/25 05:34 Amoxicillin 250 Mg Capsule PO 10/13/25 21:59 500 mg TID DC Administration Aspirin 81 mg 10/07/25 09:00 10/08/25 09:17 Aspirin Ec 81 Mg Tabec PO 11/06/25 08:59 81 mg DAILY DC Administration Atorvastatin Calcium 80 mg 10/07/25 21:00 10/07/25 20:07 Atorvastatin Calcium 20 Mg Tablet PO 11/06/25 20:59 80 mg HS DC Administration Clopidogrel Bisulfate 75 mg 10/07/25 09:00 10/08/25 09:17 Clopidogrel Bisulfate 75 Mg Tablet PO 11/06/25 08:59 75 mg DAILY DC Administration Enoxaparin Sodium 40 mg 10/07/25 09:00 10/08/25 09:20 Enoxaparin Sod Inj 40 Mg/0.4 Ml Syringe SC 10/21/25 08:59 Not Given QDAY DC Plan 50-year-old female with past medical history of hypertension, hyperlipidemia, asthma, depression, and substance abuse who presented to the ED on 10/07/2025 with worsening left sided weakness which first onset 2 days prior to admission when she woke up on 10/04/2025 feeling like her left arm was heavy and had trouble gripping, was found to have an acute ischemic stroke of the right brainstem at the pontine level and admitted with neurology consulted for further management. #Right pontine 13 mm acute ischemic stroke #New onset left upper and lower extremity weakness Last known well is approximately 3 days before presentation, outside window of thrombolysis. 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 Brain MRI showed a large acute infarction in the right brainstem at the pontine level. NIHSS 6 on admission: Arouses to minor stimulation (+1) Unable to squeeze left hand (+1) Left arm motor drift, does not hit bed (+1) Left leg motor drift, does hit bed (+2) Personal inattention, confusion (+1) A1c 6.1, Lipids showed TC 202, TG 175, LDL 130, HDL 37 PT and speech therapy passed patient, according to evaluations, patient is able to ambulate independently despite what my physical examination shows with patient 1/5 left-sided extremity strength. -PT recommended outpatient PT services, gait training -Patient will need DAPT for 21 days -Continue aspirin 81 mg po daily for 21 days -Continue Plavix 75 mg daily indefinitely -Continue atorvastatin 80 mg PO HS -Patient can be discharged -Follow up hypercoagulable workup outpatient Ordered antiphosphospholipid, antithrombin III, cardiolipin, factor V Leiden, lupus, protein C activity and antigen, protein S activity and antigen, and prothrombin factor II, and PATRICIA screen -Follow up with Neurology in 2 weeks Rest of conditions to continue current management per primary team: #UTI #Urinary incontinence #Hypertension #Prediabetes #Asthma #History of alcohol use #History of meth use #History of marijuana use #History of depression Patient was discussed with the Neurology attending, Dr. More. Thank you for allowing us to participate in the care of this patient. Xochitl Becker, PGY-3 Attending Provider Attestation/Addendum I agreed with the resident' findings, assessment and plans.. Follow-up with the hypercoagulopathy workup as an outpatient. Patient's neurological deficit is improved the left-sided weakness. Continue with the dual antiplatelet therapy for 21 days followed by Plavix alone with statin.
--- NOTE | 2025-10-08 14:22 | ESDS_ITS ---
<Statement entered by Johny Malik MD - 10/08/25 14:32> Note reviewed and agree with care plan as documented. Please refer to the note below for further details. Plan discussed with attending physician Dr. Soheila Malik MD PGY-2 Internal Medicine Planned Discharge Date 10/08/25 DS: Providers Provider Date of admission: 10/06/25 20:21 Primary care physician: Mikel Nieto MD Admitting Provider: Shannan Grubbs MD Attending Provider on Admission: Shannan Grubbs MD Consults: 10/06/25 19:19 Consult to Neurology / Tele-Neurology Stat Comment: CVA Consulting Provider: Robinson More 10/06/25 21:15 Referral Physical Therapy Routine Comment: Physician Instructions: Referral Speech Therapy Routine Comment: Attending Provider on DC: Israel Mckeon MD Discharging Provider: Israel Mckeon MD DS: Diagnosis Problem List Completed Was Problem List Reviewed/Reconciled?: Yes Hospital Course Hospital Course Hospital course: 50-year-old female with a past medical history of depression presented to the ED in the evening of 10/06/2025 with chief complaint of left-sided weakness and dizziness of 3 days duration. Brain MRI showed a large acute infarction ~13mm in the right brainstem at the pontine level. Patient was admitted for stroke workup. On initial examination in AM of admission patient was stable, neurological examination WNL except decreased L financial manager strength and LUE LLE. Patient had been started on Atorvastatin, aspirin and clodipogrel and remained asymptomatic without progression of symptoms since admission. Physical therapy was consulted and on evaluation allowed pt to ambulate and shower with assistance, to which they recommended PT assistance on discharge. Neurology evaluation cleared patient for discharge. ECHO w/ bubble was repeated. 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 You've been started on two blood thinners to reduce your future risk of stroke, aspirin 81 mg and clopidogrel 75 mg daily ? You've also been started on a cholesterol lowering agent, atorvastatin 80 mg, that also reduces your future risk of stroke ? Continue taking all other home medications as prescribed ? Follow-up with PCP within 1-2 weeks of discharge ? Recommend outpatient physical therapy ? If you do not have a PCP, you can follow-up at the [facility] (you can call [phone] to make an appointment) ? Return to ED if symptoms worsen or recur Status at Discharge Cognitive/behavioral status at discharge: stable at baseline Time Spent with Patient Time attestation: Total time spent providing and/or coordinating discharge services: Time spent: Greater than 30 minutes Exam Vital Signs Temp Pulse Resp BP Pulse Ox O2 Del Method 98.1 F 74 18 123/85 H 98 Room Air 10/08/25 08:00 10/08/25 12:00 10/08/25 08:00 10/08/25 08:00 10/08/25 08:00 10/08/25 08:00 Narrative Exam General: alert and oriented to self/place/year, no acute distress, able to speak full sentences HEENT: NC/AT, mucous membranes moist, bilateral sclera anicteric Cardiovascular: regular rate and rhythm, S1/S2 present, no murmurs appreciated Pulmonary: clear to auscultation bilaterally, no rales/rhonchi/wheezes Abdominal: soft, nontender, present bowel sounds Musculoskeletal: no peripheral edema Skin: Warm, well-perfused Neuro: CN WNL, Gait normal, Strength 4+ RUE RLE, 3+ LUE LLE Discharge Plan Plan Patient Disposition: HOME (Self Care) Disposition Comment: Outpatient physical therapy Patient condition on transfer: Stable Care Plan Goals: ? You've been started on two blood thinners to reduce your future risk of stroke, aspirin 81 mg and clopidogrel 75 mg daily ? You've also been started on a cholesterol lowering agent, atorvastatin 80 mg, that also reduces your future risk of stroke ? Continue taking all other home medications as prescribed ? Follow-up with PCP within 1-2 weeks of discharge ? Recommend outpatient physical therapy ? If you do not have a PCP, you can follow-up at the [facility] (you can call [phone] to make an appointment) ? Return to ED if symptoms worsen or recur Prescriptions/Referrals Prescriptions/Med Rec: New aspirin 81 mg Tablet,Delayed Release (Dr/Ec) 81 mg PO DAILY 30 Days Qty: 30 0RF atorvastatin [Lipitor] 80 mg tablet 80 mg PO HS 30 Days Qty: 30 0RF clopidogrel 75 mg Tablet 75 mg PO DAILY 30 Days Qty: 30 0RF amoxicillin 500 mg tablet 500 mg PO TID 3 Days Qty: 9 0RF Referrals: Mikel Nieto MD [Primary Care Provider, Family Practice] Patient/Caregiver Discharge Instructions Education Materials: Stroke Mood Swings Depression, Stroke Self Care After, Stroke Prevention Activity Print Language: Argentine Stand Alone Forms: [place] Award Info., Patient Portal Info Letter Quality Discharge Quality Measures none MD Attestestation MD Attestation I have examined the patient, reviewed labs and imaging findings, discussed the case with the resident(s), and reviewed entered orders. I agree with the plan of care as outlined in this note. Time Spent; [address] Soheila MD
--- NOTE | 2025-10-08 17:28 | ESPR_ITS ---
<Statement entered by Johny Malik MD - 10/08/25 17:44> Note reviewed and agree with care plan as documented. Please refer to the note below for further details. Plan discussed with attending physician Dr. Soheila Malik MD PGY-2 Internal Medicine Documentation for date of: 10/08/25 Subjective Subjective Interval history: Ms. Elizalde remains neurologically stable this morning. Has been ambulating and eating without concerns for weakness. No changes in mentation. She expresses frustration at when she can go home, but team reassured her that she is pending neurology evaluation and ECHO study to which she was amenable. Exam Vital Signs Temp Pulse Resp BP Pulse Ox O2 Del Method 97.8 F 79 16 137/87 H 96 Room Air 10/08/25 16:00 10/08/25 16:00 10/08/25 16:00 10/08/25 16:00 10/08/25 16:00 10/08/25 16:00 Narrative Exam General: alert and oriented to self/place/year, no acute distress, able to speak full sentences HEENT: NC/AT, mucous membranes moist, bilateral sclera anicteric Cardiovascular: regular rate and rhythm, S1/S2 present, no murmurs appreciated Pulmonary: clear to auscultation bilaterally, no rales/rhonchi/wheezes Abdominal: soft, nontender, present bowel sounds Musculoskeletal: no peripheral edema Skin: Warm, well-perfused Neurological: L sided LUE LLE < RUE RLE strength, +3 vs +4; CN in tact, gait observed to be normal Objective Labs 10/09/25 05:27 10/09/25 05:27 Labs: Laboratory Results - last 24 hr 10/08/25 05:38 WBC 7.5 RBC 4.46 Hgb 13.4 Hct 41.1 MCV 92 MCH 30.0 MCHC 32.6 RDW Std Deviation 43.8 Plt Count 359 Neut % (Auto) 43 Lymph % (Auto) 41 [place] % (Auto) 12 Eos % (Auto) 4 Baso % (Auto) 1 Neut # (Auto) 3.3 Lymph # (Auto) 3.1 [place] # (Auto) 0.9 H Eos # (Auto) 0.3 Baso # (Auto) 0.1 Immature Gran # (Auto) 0.01 H Absolute Nucleated RBC 0.00 Immature Gran % 0 Nucleated RBC % 0 PT 10.9 INR 1.0 APTT 27.8 Sodium 143 Potassium 3.8 Chloride 106 Carbon Dioxide 26.0 Anion Gap 11 BUN 10 Creatinine 0.8 Estim Creat Clear Calc 99.1 eGFR > 60 BUN/Creatinine Ratio 13 Glucose 105 Calculated Osmolality 283 Calcium 9.6 Corrected Calcium 9.6 Phosphorus 5.6 H Magnesium 1.5 L Total Bilirubin 0.6 AST 19 ALT 21 Alkaline Phosphatase 73 Total Protein 7.0 Albumin 4.2 Globulin 2.8 Albumin/Globulin Ratio 1.5 ABG Interpretation ABG results: 10/06/25 13:18 VBG pH 7.41 VBG pCO2 47 VBG pO2 26 VBG Base Excess 4 H Quality Measures Quality Measures VTE prophylaxis and stroke Suspected type of Stroke: Acute Ischemic Tenecteplase given: Reason(s) Tenecteplase not given: Outside the time window not given Rehab services: PT evaluation ordered VTE Prophylaxis: pharmaceutical Antithrombotic by day 2:: ordered Statin ordered: <75 y/o high intensity dose Anticoagulation ordered for A-fib or flutter (current or hx): not indicated Assessment & Plan Assessment Current Active Medications: Generic Name Dose Route Start Last Admin Trade Name Freq PRN Reason Stop Dose Admin Acetaminophen 650 mg 10/07/25 04:46 10/07/25 20:06 Acetaminophen 325 Mg Tablet PO 11/05/25 20:11 650 mg Q6H PRN Administration Fever >100.4 or pain 1-3 Amoxicillin 500 mg 10/06/25 22:00 10/08/25 15:58 Amoxicillin 250 Mg Capsule PO 10/13/25 21:59 500 mg TID DC Administration Aspirin 81 mg 10/07/25 09:00 10/08/25 09:17 Aspirin Ec 81 Mg Tabec PO 11/06/25 08:59 81 mg DAILY DC Administration Atorvastatin Calcium 80 mg 10/07/25 21:00 10/07/25 20:07 Atorvastatin Calcium 20 Mg Tablet PO 11/06/25 20:59 80 mg HS DC Administration Clopidogrel Bisulfate 75 mg 10/07/25 09:00 10/08/25 09:17 Clopidogrel Bisulfate 75 Mg Tablet PO 11/06/25 08:59 75 mg DAILY DC Administration Enoxaparin Sodium 40 mg 10/07/25 09:00 10/08/25 09:20 Enoxaparin Sod Inj 40 Mg/0.4 Ml Syringe SC 10/21/25 08:59 Not Given QDAY DC Plan 50-year-old female with a past medical history of depression presented to the ED in the evening of 10/06/2025 with chief complaint of left-sided weakness and dizziness of 3 days duration. Brain MRI showed a large acute infarction ~13mm in the right brainstem at the pontine level. Patient was admitted for stroke. 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 followed by weakness in her left leg followed by episodes of dizziness Brain MRI showed a large acute infarction in the right brainstem at the pontine level Patient had no sensory losses or facial palsy on exam NIHSS 6 on admission: Arouses to minor stimulation (+1) Unable to squeeze left hand (+1) Left arm motor drift, does not hit bed (+1) Left leg motor drift, does hit bed (+2) Personal inattention, confusion (+1) Patient is 50 with no history of diabetes, tobacco use, hypertension, hyperlipidemia, and takes no medications for any of these conditions Meth use is suspicious as a contributing factor to this patient's stroke, UTOX was positive for methamphetamines Endorses hx of marijuana use 10/07 Admission Triglycerides 175, Cholesterol 202 10/07 visit by Physical Therapy: Patient is safe to ambulate to the bathroom xI and in the halls with 1 staff assist for safety over long distances. RN made aware. Has not demonstrated dysarthria, dysphagia in morning while eating breakfast and lunch -Neurology gave OK for discharge, recs: -PT recommended outpatient PT services, gait training -Patient will need DAPT for 21 days -Continue aspirin 81 mg po daily for 21 days -Continue Plavix 75 mg daily indefinitely -Continue atorvastatin 80 mg PO HS -Patient can be discharged -Obtain hypercoagulable workup outpatient -Follow up with Neurology in 2 weeks -Echo did not include bubble study, will repeat tomorrow AM then if results normal then anticipated discharge home -q4h neurochecks #UTI #Urinary incontinence Patient mentions a 2-day history of urinary incontinence Given that this symptom has been occurring for about the same amount of time as the patient's left-sided weakness, this may be related to the patient's stroke Consider infarction/lesions/damage to the pontine micturition center which may affect voluntary control of the bladder However, leukocyte esterase positive urinalysis may better reinforce the cause of incontinence as infectious rather than pontine infarction-related 10/06 Urinalysis showed RBCs 15, WBC 78, leukocyte esterase positive. Patient is afebrile, no leukocytosis Patient endorses recent urinary incontinence, more likely related to UTI than stroke Ddx: Urinary incontinence due to UTI vs stroke: overflow incontinence >>urge incontinence>>>stress incontinence -Amoxicillin 5 mg p.o. 3 times daily 10/06 - -Follow-up urine culture #Hypertension stage II Patient presented with a BP of 144/98 -Permissive HTN overnight as stated above #Asthma Pt endorses hx of asthma dx Clinically monitor, to consider inhaled medication if indicated #History of alcohol use Patient mentioned that she used to drink daily has been sober for several months Patient mentioned that her last drink was the evening of 10/03/2025 Patient showed no signs of withdrawal on exam, negative for tremors, diaphoresis, or vomiting -Referral to delinquency prevention social worker #History of meth use Patient mentioned that she has not used meth in the last 6 months but that she used to use meth frequently Patient's UTOX was positive for methamphetamines -Referral to delinquency prevention social worker -Counseled patients on the dangers and consequences of methamphetamine use #History of depression Patient mentioned that she was prescribed various antidepressant medications several years ago but never took them -No direct invention at this time #Prediabetes Patient's A1c 6.1 Patient does not take insulin at home -Regular Diet -Glucose checks with daily labs Hospital management: Disposition: pending repeat ECHO w/ bubble Fluids: NA on normal diet Diet: normal Lines: PIV DVT prophylaxis: Enoxaparin 40mg qday CODE STATUS: full code/DNR Patient seen and discussed with attending physician Dr. Diego Parnell and senior resident Dr. Johny Mckeon MD PGY-1 Attending Provider Attestation/Addendum I have examined the patient, reviewed labs and imaging findings, discussed the case with the resident(s), and reviewed entered orders. I agree with the plan of care as outlined in this note. Patient has pending echocardiogram with bubble study before she can be safely discharged. Dr. Soheila MD
--- NOTE | 2025-10-08 18:24 | ECHO_ITS ---
Patient Info Name: Patrica Elizalde Age: 50 years : 1975 Gender: Female Exam Date: 10/08/2025 6:26 PM Admit Date: 10/06/2025 Site: [facility] Patient Status: I Exam Type: CA echo doppler complete Sustainable Agriculture Specialist: Anat Stokes Ordering Physician: Diego Parnell Study Info Indications Acute CVA. with bubbly study - Primary Location: [facility] Summary 1. Bubble study negative for any PFO or ASD. Consider ISATU if high clinical suspicion of embolic stroke. Report Signatures Finalized by Lee Durbin on 10/08/2025 06:54 PM
[2025-10-08] MEDS: ATORVASTATIN CALCIUM 20 MG TABLET 80 MG PO (21:14)
[2025-10-08] MEDS: ATROPINE SULF INJ 0.1 MG/ML SYR 10 ML 1 MG IV (23:53)
[2025-10-08] MEDS: SODIUM CHLORIDE 0.9% 1000 ML 1,000 ML 999 ML IV (23:54)
--- NOTE | 2025-10-08 23:54 | EKG_ITS ---
[facility] Test Date: 2025-10-08 Pat Name: NANNETTE RAMSAY [facility] Plant Cytologist: JOYCE : 1975 Requested By: Saqib Lowe Order Number: [id number] Reading MD: Saqib Lowe Measurements Intervals [place] Rate: 97 P: 59 MD: 129 QRS: 78 QRSD: 82 T: 67 QT: 368 QTc: 468 Interpretive Statements SINUS RHYTHM Compared to ECG 10/06/2025 13:05:52 Sinus bradycardia no longer present /store/S0/[id number].pdf
[2025-10-08] MEDS: Magnesium Sulfate 2 GM Ivpb 2 GM/50 ML BAG IV (23:59)
[2025-10-09] VITALS (8 sets, daily range): BP systolic 61–134; BP diastolic 36–90; PULSE 39–98; RESP 12–98; TEMP 36–36.4; O2SAT 76–100; BMI 33.8
[2025-10-09] MEDS: POTASSIUM CHL 10 mEq IVPB 10 MEQ/100 ML BAG 100 MEQ IV ×4 (00:05→04:48)
--- NOTE | 2025-10-09 00:21 | EVENTNT_ITS ---
Documentation for date of: 10/09/25 Event Note Event Note: Rapid response was called for patient Patrica Elizalde in room 266 at 11:51 PM on 10/08/2025 for bradycardia. Immediately attended the rapid response. Was already given a dose of atropine 1 mg IV and heart rate improved from 37 to 60 bpm, in normal sinus rhythm. Noted to have cardiac pads on and is connected to the defibrillator. Patient is lying on the bed in Trendelenburg position. Nurses at the bedside reported patient noted to have bradycardia on the telemonitoring and complained of dizziness for which rapid was called. On questioning, complained of dizziness and overall generalized weakness. Denies chest pain, palpitations, any other associated complaints. No new physical examination findings were found except for weakness on left half of the body that is present since hospitalisation. S1, S2 heard and no added sounds, murmurs heard. Blood pressure is around 70-80/40-50 with MAP around 50 to 55 mmHg. Ordered a liter of NS bolus, noted to have magnesium of 1.5 and potassium of 3.8 in the morning labs. EKG, troponin, magnesium, potassium is ordered. Repleted with 4 g of magnesium sulfate, 40 mill equivalents of IV potassium chloride. Reviewed EKG at the bedside and showed sinus rhythm with heart rate 90 bpm, no acute ST and T wave changes. Reevaluation after 10 minutes, MAP improved to 73 mmHg, patient reported that she is feeling better than before. As patient was found to have vapes at the [facility] by the nursing staff, UTOX was ordered and we will follow-up with the results. Patient plan of care was discussed with the attending physician, Dr. Humera Murcia, PGY2
[2025-10-09 00:37] LABS: Magnesium 1.5 mg/dL (1.6-2.6); Potassium 3.8 mMol/L (3.4-5.1); Troponin I < 0.002 ng/mL (0.0-0.045)
[2025-10-09 01:22] LABS: Amphetamine/Methamp Scrn,U Negative (Negative); Barbiturate Screen,Urine Negative (Negative); Benzodiazepines Screen,Urine Negative (Negative); Benzoylecgonine Screen, Ur Negative (Negative); Fentanyl Screen,Urine Negative (Negative); Opiate Screen,Urine Negative (Negative); THC Screen,Urine Positive (Negative)
[2025-10-09] MEDS: Magnesium Sulfate 2 GM Ivpb 2 GM/50 ML BAG IV (01:40)
[2025-10-09] MEDS: AMOXICILLIN 250 MG CAPSULE 500 MG PO ×2 (05:55→13:08)
[2025-10-09 06:09] LABS: Basophils # (Auto) 0.0 Thou/mm3 (0.0-0.2); Basophils % (Auto) 1 % (0-2.5); Eosinophils # (Auto) 0.1 Thou/mm3 (0.0-0.5); Eosinophils % (Auto) 2 % (0-10); Hematocrit 39.1 % (36.0-46.0); Hemoglobin 12.7 g/dL (12.0-16.0); Immature Granulocytes Auto 0.01 Thou/mm3 (0.00-0.00); Lymphocytes # (Auto) 2.1 Thou/mm3 (1.0-4.8); Lymphocytes % (Auto) 26 % (10-50); Mean Corpuscular HGB Conc 32.5 g/dl (31.0-37.0); Mean Corpuscular Hemoglobin 30.4 pg (25.0-35.0); Mean Corpuscular Volume 94 fL (80-100); Monocytes # (Auto) 0.8 Thou/mm3 (0.0-0.8); Monocytes % (Auto) 9 % (0-12); Neutrophils # (Auto) 5.1 Thou/mm3 (1.8-7.7); Neutrophils % (Auto) 63 % (37-80); Nucleated Red Blood Cell # 0.00 Thou/mm3 (0.00-0.00); Nucleated Red Blood Cell % 0 /100 WBC (0); Platelet Count 327 Thou/mm3 (140-440); RDW Standard Deviation 44.1 fL (36.4-46.3); Red Blood Count 4.18 Miln/mm3 (4.00-5.20); White Blood Count 8.1 Thou/mm3 (3.6-11.0)
[2025-10-09 06:44] LABS: Alanine Aminotransferase 23 U/L (10-49); Albumin, Serum 3.8 gm/dL (3.5-5.0); Albumin/Globulin Ratio 1.5 (1.2-2.2); Alkaline Phosphatase 73 U/L (46-116); Anion Gap 10 (7-16); Aspartate Amino Transferase 22 U/L (0-34); BUN/Creatinine Ratio 10 Ratio (12-20); Bilirubin,Total 0.5 mg/dL (0.3-1.2); Blood Urea Nitrogen 8 mg/dL (9-23); Calcium 8.8 mg/dL (8.3-10.6); Calcium (Corrected) 9.0 mg/dL (8.5-10.1); Carbon Dioxide 23.7 mMol/L (20.0-31.0); Chloride 109 mMol/L (98-107); Creatinine (Component) 0.8 mg/dL (0.6-1.3); Estimated Creatinine Clearance 98.9 mL/min (>60); Globulin 2.6 gm/dL (2.3-3.5); Glucose 121 mg/dL (74-106); Magnesium 2.2 mg/dL (1.6-2.6); Osmolality,Calculated 284 (275-295); Phosphorous 4.4 mg/dL (2.4-5.1); Potassium 4.7 mMol/L (3.4-5.1); Sodium 143 mMol/L (136-145); Total Protein 6.4 gm/dL (5.7-8.2); eGFR > 60 See Note
[2025-10-09] MEDS: CLOPIDOGREL BISULFATE 75 MG TABLET PO (09:10)
[2025-10-09] MEDS: ASPIRIN EC 81 MG TABEC PO (09:10)
--- NOTE | 2025-10-09 12:22 | ESDS_ITS ---
<Statement entered by Johny Malik MD - 10/09/25 15:31> Note reviewed and agree with care plan as documented. Please refer to the note below for further details. Plan discussed with attending physician Dr. Soheila Malik MD PGY-2 Internal Medicine Planned Discharge Date 10/09/25 DS: Providers Provider Date of admission: 10/06/25 20:21 Primary care physician: Mikel Nieto MD Admitting Provider: Shannan Grubbs MD Attending Provider on Admission: Shannan Grubbs MD Consults: 10/06/25 19:19 Consult to Neurology / Tele-Neurology Stat Comment: CVA Consulting Provider: Robinson More 10/06/25 21:15 Referral Physical Therapy Routine Comment: Physician Instructions: Referral Speech Therapy Routine Comment: Attending Provider on DC: Johny Malik MD Discharging Provider: Johny Malik MD DS: Diagnosis Problem List Completed Was Problem List Reviewed/Reconciled?: Yes Hospital Course Hospital Course Hospital course: 50-year-old female with a past medical history of depression presented to the ED in the evening of 10/06/2025 with chief complaint of left-sided weakness and dizziness of 3 days duration. Brain MRI showed a large acute infarction ~13mm in the right brainstem at the pontine level. Patient was admitted for stroke workup. 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 Patient had been started on Atorvastatin, aspirin and clodipogrel and remained asymptomatic without progression of symptoms since admission. Physical therapy was consulted and on evaluation allowed pt to ambulate and shower with assistance, to which they recommended PT assistance on discharge. Neurology evaluation cleared patient for discharge. ECHO w/ bubble was repeated. 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 You've been started on two blood thinners to reduce your future risk of stroke, aspirin 81 mg and clopidogrel 75 mg daily ? You've also been started on a cholesterol lowering agent, atorvastatin 80 mg, that also reduces your future risk of stroke ? Continue taking all other home medications as prescribed ? Follow-up with PCP within 1-2 weeks of discharge ? Recommend outpatient physical therapy ? If you do not have a PCP, you can follow-up at the [facility] (you can call [phone] to make an appointment) ? Return to ED if symptoms worsen or recur Status at Discharge Cognitive/behavioral status at discharge: stable, at baseline Time Spent with Patient Time attestation: Total time spent providing and/or coordinating discharge services: 65 minutes Time spent: Greater than 30 minutes Exam Vital Signs Temp Pulse Resp BP Pulse Ox O2 Del Method O2 Flow Rate 96.8 F 81 15 123/90 H 96 Oxy Mask 15 10/09/25 08:00 10/09/25 08:00 10/09/25 08:00 10/09/25 08:00 10/09/25 08:00 10/09/25 08:00 10/09/25 08:00 Narrative Exam General: alert and oriented to self/place/year, no acute distress, able to speak full sentences; not endorsing headache nor blurry vision nor problems with ambulation. Expresses frustration of prolonged stay. HEENT: NC/AT, mucous membranes moist, bilateral sclera anicteric Cardiovascular: regular rate and rhythm, S1/S2 present, no murmurs appreciated Pulmonary: clear to auscultation bilaterally, no rales/rhonchi/wheezes Abdominal: soft, nontender, present bowel sounds Musculoskeletal: no peripheral edema Skin: Warm, well-perfused Neuro: No CN deficits observed. Gait normal, reflexes +2 on all extremities. No dyphagia nor dysarthria. Demonstrates adequate understanding of discharge plan and is able to verbalize her understanding. Discharge Plan Plan Patient Disposition: HOME (Self Care) Disposition Comment: Outpatient physical therapy Patient condition on transfer: Stable Care Plan Goals: ? You've been started on two blood thinners to reduce your future risk of st roke, aspirin 81 mg and clopidogrel 75 mg daily ? You've also been started on a cholesterol lowering agent, atorvastatin 80 mg, that also reduces your future risk of stroke ? Continue taking all other home medications as prescribed ? Follow-up with PCP within 1-2 weeks of discharge ? Recommend outpatient physical therapy ? If you do not have a PCP, you can follow-up at the [facility] (you can call [phone] to make an appointment) ? Return to ED if symptoms worsen or recur -Follow up with Neurology in 2 weeks -Continue aspirin 81 mg po daily for 21 days -Continue Plavix 75 mg daily indefinitely -Continue atorvastatin 80 mg for 21 days -Obtain hypercoagulable workup outpatient Prescriptions/Referrals Prescriptions/Med Rec: New aspirin 81 mg Tablet,Delayed Release (Dr/Ec) 81 mg PO DAILY 30 Days Qty: 30 0RF atorvastatin [Lipitor] 80 mg tablet 80 mg PO HS 30 Days Qty: 30 0RF clopidogrel 75 mg Tablet 75 mg PO DAILY 30 Days Qty: 30 0RF amoxicillin 500 mg tablet 500 mg PO TID 3 Days Qty: 9 0RF Referrals: Mikel Nieto MD [Primary Care Provider, Family Practice] Patient/Caregiver Discharge Instructions Education Materials: Stroke Mood Swings Depression, Preparing Your Home After Stroke, Discharge Instructions for Stroke, Discharge Instructions for ..., Stroke Self Care After, Stroke Prevention Activity Print Language: [place]e Stand Alone Forms: [place] Award Info., Patient Portal Info Letter Discharge Order Discharge Orders: Discharge (Routine); Ordered 10/09/25 Ordered By: Johny Cardoso Akjose Quality Discharge Quality Measures VTE prophylaxis, stroke Statin ordered >75 y/o:moderate or high intensity dose on DC: no Statin ordered <75 y/o: high intensity dose on DC: yes Statin not ordered due to:: LDL < or = 70 (statin was ordered) Anticoagulation ordered for A-fib or flutter (current or hx): not indicated Antithrombotic ordered on DC: ordered and none MD Attestestation MD Attestation I have examined the patient, reviewed labs and imaging findings, discussed the case with the resident(s), and reviewed entered orders. I agree with the plan of care as outlined in this note. Time Spent: [address] Soheila MD
--- NOTE | 2025-10-09 14:25 | ESPR_ITS ---
Documentation for date of: 10/09/25 Subjective Subjective Interval history: Patient was seen at bedside, speaking loquaciously on her cell phone. Reports otherwise normal return of the left upper and lower extremities. Echo repeated with bubble study was negative. Hypercoagulable workup orders were placed but cancelled by lab due to the patient being discharged, patient asked to follow up to get them drawn outpatient. Exam Vital Signs Temp Pulse Resp BP Pulse Ox O2 Del Method O2 Flow Rate 96.8 F 66 15 123/90 H 96 Oxy Mask 15 10/09/25 08:00 10/09/25 12:00 10/09/25 08:00 10/09/25 08:00 10/09/25 08:00 10/09/25 08:00 10/09/25 08:00 Narrative Exam Physical Exam General: Awake, conversational, better mood than yesterday. HEENT: Normocephalic, atraumatic, mucous membranes moist. Neuro Stroke Exam: -Alert and oriented x3. -Normal fluent speech. -No facial droop. 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 Strength 5/5 left arm, 5/5 left rotary filter operator strength. -Strength 5/5 right lower extremity. Strength 5/5 left lower extremity. -Intact sensation bilaterally. Extremities: No edema. Skin: No rash or ecchymoses. Objective Labs 10/09/25 05:27 10/09/25 05:27 Labs: Laboratory Results - last 24 hr 10/08/25 10/09/25 10/09/25 23:57 00:51 05:27 WBC 8.1 RBC 4.18 Hgb 12.7 Hct 39.1 MCV 94 MCH 30.4 MCHC 32.5 RDW Std Deviation 44.1 Plt Count 327 D Neut % (Auto) 63 Lymph % (Auto) 26 [place] % (Auto) 9 Eos % (Auto) 2 Baso % (Auto) 1 Neut # (Auto) 5.1 Lymph # (Auto) 2.1 [place] # (Auto) 0.8 Eos # (Auto) 0.1 Baso # (Auto) 0.0 Immature Gran # (Auto) 0.01 H Absolute Nucleated RBC 0.00 Immature Gran % 0 Nucleated RBC % 0 Sodium 143 Potassium 3.8 4.7 D Chloride 109 H Carbon Dioxide 23.7 Anion Gap 10 BUN 8 L Creatinine 0.8 Estim Creat Clear Calc 98.9 eGFR > 60 BUN/Creatinine Ratio 10 L Glucose 121 H Calculated Osmolality 284 Calcium 8.8 Corrected Calcium 9.0 Phosphorus 4.4 Magnesium 1.5 L 2.2 Total Bilirubin 0.5 AST 22 ALT 23 Alkaline Phosphatase 73 Troponin I < 0.002 Total Protein 6.4 Albumin 3.8 Globulin 2.6 Albumin/Globulin Ratio 1.5 Urine Opiates Screen Negative Urine Fentanyl Screen Negative Ur Barbiturates Screen Negative U Amphetamin/Meth Scrn Negative U Benzodiazepines Scrn Negative U Cocaine Metab Screen Negative U Marijuana (THC) Screen Positive A ABG Interpretation ABG results: 10/06/25 13:18 VBG pH 7.41 VBG pCO2 47 VBG pO2 26 VBG Base Excess 4 H Quality Measures Quality Measures none Assessment & Plan Assessment Current Active Medications: Generic Name Dose Route Start Last Admin Trade Name Freq PRN Reason Stop Dose Admin Acetaminophen 650 mg 10/07/25 04:46 10/07/25 20:06 Acetaminophen 325 Mg Tablet PO 11/05/25 20:11 650 mg Q6H PRN Administration Fever >100.4 or pain 1-3 Amoxicillin 500 mg 10/06/25 22:00 10/09/25 13:08 Amoxicillin 250 Mg Capsule PO 10/13/25 21:59 500 mg TID DC Administration Aspirin 81 mg 10/07/25 09:00 10/09/25 09:10 Aspirin Ec 81 Mg Tabec PO 11/06/25 08:59 81 mg DAILY CD Administration Atorvastatin Calcium 80 mg 10/07/25 21:00 10/08/25 21:14 Atorvastatin Calcium 20 Mg Tablet PO 11/06/25 20:59 80 mg HS DC Administration Clopidogrel Bisulfate 75 mg 10/07/25 09:00 10/09/25 09:10 Clopidogrel Bisulfate 75 Mg Tablet PO 11/06/25 08:59 75 mg DAILY DC Administration Enoxaparin Sodium 40 mg 10/07/25 09:00 10/09/25 09:12 Enoxaparin Sod Inj 40 Mg/0.4 Ml Syringe SC 10/21/25 08:59 Not Given QDAY DC Plan 50-year-old female with past medical history of hypertension, hyperlipidemia, asthma, depression, and substance abuse who presented to the ED on 10/07/2025 with worsening left sided weakness which first onset 2 days prior to admission when she woke up on 10/04/2025 feeling like her left arm was heavy and had trouble gripping, was found to have an acute ischemic stroke of the right brainstem at the pontine level and admitted with neurology consulted for further management. #Right pontine 13 mm acute ischemic stroke #New onset left upper and lower extremity weakness Last known well is approximately 3 days before presentation, outside window of thrombolysis. 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 Brain MRI showed a large acute infarction in the right brainstem at the pontine level. NIHSS 6 on admission: Arouses to minor stimulation (+1) Unable to squeeze left hand (+1) Left arm motor drift, does not hit bed (+1) Left leg motor drift, does hit bed (+2) Personal inattention, confusion (+1) A1c 6.1, Lipids showed TC 202, TG 175, LDL 130, HDL 37 PT and speech therapy passed patient, according to evaluations, patient is able to ambulate independently despite what my physical examination shows with patient 1/5 left-sided extremity strength. -PT recommended outpatient PT services, gait training -Patient will need DAPT for 21 days -Continue aspirin 81 mg po daily for 21 days -Continue Plavix 75 mg daily indefinitely -Continue atorvastatin 80 mg PO HS -Patient can be discharged -Follow up hypercoagulable workup outpatient Patient should have ordered: antiphosphospholipid, antithrombin III, cardiolipin, factor V Leiden, lupus, protein C activity and antigen, protein S activity and antigen, and prothrombin factor II, and PATRICIA screen -Follow up with Neurology in 2 weeks Rest of conditions to continue current management per primary team: #UTI #Urinary incontinence #Hypertension #Prediabetes #Asthma #History of alcohol use #History of meth use #History of marijuana use #History of depression Patient was discussed with the Neurology attending, Dr. More. Thank you for allowing us to participate in the care of this patient. Xochitl Becker, PGY-3 Attending Provider Attestation/Addendum I personally have seen and examined the patient at the bedside and I agreed with the resident's findings assessment and plan of care. Patient with acute ischemic stroke, stable for discharge from neurology standpoint on dual antiplatelet agent. Follow-up with hypercoagulopathy lab's as an outpatient upon discharge.
== END 2025-10-09 16:50 | disposition home or self-care (01) | DRG 45 ==
LOC: SERX 20:14 → SERHOLD 20:37 → S2NX 22:13
PROVIDERS: Student in an Organized Health Care Education/Training Program; Admitting Provider Student in an Organized Health Care Education/Training Program; Emergency Provider Emergency Medicine; PCP Family Medicine; Visit Provider Student in an Organized Health Care Education/Training Program
DX: I63.29 Cerebral infarction due to unspecified occlusion or stenosis of other precerebral arteries (principal); F17.200 Nicotine dependence, unspecified, uncomplicated; M79.7 Fibromyalgia; I10 Essential (primary) hypertension; F12.90 Cannabis use, unspecified, uncomplicated; F32.A Depression, unspecified; G81.94 Hemiplegia, unspecified affecting left nondominant side; J45.909 Unspecified asthma, uncomplicated; R29.706 NIHSS score 6; N39.0 Urinary tract infection, site not specified; R32 Unspecified urinary incontinence; R73.03 Prediabetes; F15.129 Other stimulant abuse with intoxication, unspecified; Z79.02 Long term (current) use of antithrombotics/antiplatelets; Z66 Do not resuscitate; Z79.82 Long term (current) use of aspirin; Z79.899 Other long term (current) drug therapy; R00.1 Bradycardia, unspecified
CPT/HCPCS: 36415; 70553; 71045; 80053; 80061; 80307; 80320; 81001; 81240; 81241; 82010; 82803; 83036; 83735; 83880; 84100; 84132; 84145; 84443; 84484; 84703; 85025; 85300; 85301; 85302; 85303; 85305; 85306; 85610; 85613; 85652; 85730; 86038; 86140; 86146; 86147; 86148; 87077; 87086; 87186; 92610; 93005; 93306; 96361; 96374; 97162; 99284; J0461; J0696; J1650; J2405; J3475; J3480; J7030; Q9963; A9270; G0480